=== PATIENT | female | born 1935 | race Caucasian/White ===

== ENCOUNTER 2017-03-11 16:25 | Inpatient (IN) | payer MEDICARE, OTHER ==
--- NOTE | 2017-03-11 16:59 | RAD ---
AP AND FROGLEG VIEWS RIGHT HIP 03/11/17 AP and frogleg views right hip is obtained. The images demonstrate an area of lucency seen in the right superior and inferior pubic rami compati ble with possible right superior and inferior pubic rami fractures. The right hip including the femo ral neck and head are unremarkable. IMPRESSION: Possible right superior and inferior pubic rami fractures indeterminate age. Correlate with AP view pelvis as well as history. POS: [facility]
[2017-03-11] MEDS ORDERED: Ketorolac Tromethamine 30 MG/ML VIAL ONE (17:51)
[2017-03-11 18:07] LABS: #Lymphocytes 0.6 thou/uL (1.20-3.40); #Monocytes 1.3 thou/uL (0.11-0.59); #Neutrophils 13.8 thou/uL (1.40-6.50); %Eosinophils 0.1 % (0.0-10.0); %Lymphocytes 3.9 % (21.0-51.0); Mean Platelet Volume 7.3 fL (7.4-10.4); Red Blood Cell (RBC) Count 3.47 mill/uL (4.20-5.40); White Blood Cell (WBC) Count 15.7 thou/uL (4.8-10.8)
[2017-03-11 18:16] LABS: PTT 26.7 SEC (22.9-36.1); Prothrombin Time 14.2 SEC (12.0-14.7)
[2017-03-11 18:19] LABS: Anion Gap 16 mmol/L (10-20); BUN (Urea Nitrogen) 15 mg/dL (9.8-20.1); Calc. Creatinine Clearance 0 mL/min (70-130); Calcium 9.3 mg/dL (7.8-10.44); Carbon Dioxide 25 mmol/L (23-31); Chloride 106 mmol/L (98-107); Estimated GFR-MDRD 73
[2017-03-11 18:26] LABS: Lactic Acid - Sepsis 4.1 mmol/L (0.5-2.2)
[2017-03-11 19:37] LABS: Bilirubin Negative (Negative); Blood, Urine Negative (Negative); Glucose, Urine (Dipstick) Negative (Negative); Ketone, Urine Negative (Negative); Nitrite Negative (Negative); Protein, Urine (Dipstick) Negative (Neg-Trace); Urobilinogen 0.2 mg/dL (0.2-1.0)
[2017-03-11] MEDS ORDERED: traMADol HCl 50 MG TAB PO PRN (19:45)
--- NOTE | 2017-03-11 19:45 | RAD ---
PORTABLE AP CHEST X-RAY: 03/11/17 HISTORY: Right hip pain. Preoperative evaluation. COMPARISON: 01/01/17. FINDINGS: Cardiac silhouette is magnified by projection. Pulmonary vasculature is within normal limits. The epg ngs are clear. Vascular calcification seen in the thoracic aorta. There has been no interval change from the prior study. IMPRESSION: No acute cardiopulmonary process. POS: [facility]
[2017-03-11] MEDS ORDERED: Dextrose 50% Abboject 50 ML SYRINGE SLOW IVP PRN (19:47)
[2017-03-11] MEDS ORDERED: Ondansetron HCl/PF 4 MG/2 ML Vial IVP PRN (19:47)
[2017-03-11] MEDS ORDERED: Dextrose 5% in Water 1,000 ML IV PRN (19:47)
[2017-03-11] MEDS ORDERED: Ondansetron ODT 4 MG TAB PO PRN (19:47)
[2017-03-11] MEDS ORDERED: cefTRIAXone\\ROCEPHIN 2 GM VIAL ONE (19:49)
[2017-03-11] MEDS ORDERED: Sodium Chloride 0.9% 100 ML ONE (19:49)
[2017-03-11 20:03] LABS: Troponin I 0.018 ng/mL (< 0.028)
[2017-03-11] MEDS ORDERED: Ibuprofen 600 MG TAB PO SCH (21:00)
[2017-03-11] MEDS: Acetaminophen 500 MG TAB PO SCH (22:31)
[2017-03-11] MEDS: Ibuprofen 600 MG TAB PO SCH (22:34)
[2017-03-11] MEDS: Famotidine 20 MG TAB PO SCH (22:34)
[2017-03-11] MEDS: Senokot S 8.6-50 MG TAB PO SCH (22:34)
[2017-03-12] MEDS: traMADol HCl 50 MG TAB PO SCH ×4 (00:22→19:46)
[2017-03-12 01:31] VITALS: BMI 21.3
[2017-03-12] MEDS: Acetaminophen 500 MG TAB PO SCH ×4 (01:55→20:09)
[2017-03-12] MEDS: Ibuprofen 600 MG TAB PO SCH ×3 (05:22→21:34)
[2017-03-12 05:52] LABS: #Monocytes 0.5 thou/uL (0.11-0.59); #Neutrophils 4.6 thou/uL (1.40-6.50); %Basophils 0.3 % (0.0-1.0); %Eosinophils 0.5 % (0.0-10.0); %Lymphocytes 16.9 % (21.0-51.0); %Monocytes 7.3 % (0.0-10.0); Hematocrit 24.2 % (36.0-47.0); Red Blood Cell (RBC) Count 2.47 mill/uL (4.20-5.40); White Blood Cell (WBC) Count 6.2 thou/uL (4.8-10.8)
[2017-03-12 06:03] LABS: Anion Gap 9 mmol/L (10-20); BUN (Urea Nitrogen) 13 mg/dL (9.8-20.1); Calc. Creatinine Clearance 51 mL/min (70-130); Calcium 8.2 mg/dL (7.8-10.44); Carbon Dioxide 29 mmol/L (23-31); Chloride 108 mmol/L (98-107); Estimated GFR-MDRD 84; Magnesium 1.6 mg/dL (1.6-2.6); Phosphorus 3.1 mg/dL (2.3-4.7)
--- NOTE | 2017-03-12 07:52 | CON ---
DATE OF CONSULTATION: 03/12/2017 CHIEF COMPLAINT: Right hip pain. HISTORY OF PRESENT ILLNESS: Ms. Ca is an 81-year-old female who lives independently and is in [facility]. She was watering her plants when she lost her balance. She landed on a concrete step. She had pain in the hip. Her neighbor helped her up. She was taken to the emergency department wit h hip pain. She was found to have a superior and inferior pubic ramus fracture on the right side. She has been admitted for pain control and mobilization. PAST MEDICAL HISTORY: Consistent with hyperlipidemia. PAST SURGICAL HISTORY: History of cataract surgery, and hysterectomy. PSYCHIATRIC: History of depression. SOCIAL HISTORY: The patient drinks alcohol. She denies tobacco or drug use. ALLERGIES: No known drug allergies. PHYSICAL EXAMINATION: VITAL SIGNS: Temperature is 97.9, pulse 91, respiratory 18, blood pressure 110/51. GENERAL: She is alert and oriented, no apparent distress, sitting upright. RESPIRATORY: Breathing comfortably. ABDOMEN: Soft, nontender, nondistended. MUSCULOSKELETAL: The right leg has no ecchymosis. She can move the hip and internal and external r otation without significant discomfort. Normal posture and alignment. NEUROLOGICAL: Neurovascular intact distally. IMAGES: X-ray of the right hip demonstrates an inferior and superior pubic ramus fracture on the ri ght side. There is no evidence of proximal femur fracture. IMPRESSION: Pubic ramus fracture in an elderly female. PLAN: At this point, the patient will continue to have pain control as needed. We will try to avoi d narcotics. She will mobilize with physical therapy. She can be weightbearing as tolerated. She can have a regular diet, no plans for surgical intervention. She may need placement if she cannot m obilize safely.
[2017-03-12] MEDS: Famotidine 20 MG TAB PO SCH ×2 (11:20→21:11)
[2017-03-12] MEDS: Senokot S 8.6-50 MG TAB PO SCH ×2 (11:24→21:11)
[2017-03-12] MEDS: Folic Acid 1 MG TAB PO SCH (11:35)
[2017-03-12] MEDS: Heparin 5,000 UNITS/ML VIAL SC SCH ×3 (11:51→21:11)
--- NOTE | 2017-03-12 12:09 | PRG-2 ---
DATE OF SERVICE: 03/12/2017 DATE OF ADMISSION: 03/11/2017 SUBJECTIVE: Brenda Ca is an 81-year-old female, who is here after coming to the ER, status post fall and having a fracture of her pubic rami. The patient reports doing very well today and has alr jamison gotten up with PT and walked to the door and is walked to the bathroom. Reports pain being ravi quately controlled. Denies any other symptoms at this time. Denies any other concerns or complaint s at this time. Patient at first did not want to go to rehab and is waiting to be assessed. OBJECTIVE: VITAL SIGNS: Temperature 98.6, pulse 76, respirations 12, O2 sats 93% on room air, blood pressure i s 112/64. LABORATORY DATA: White blood cell count 6.2, hemoglobin 8.1, hematocrit 24.2, platelet count is 129 . Chemistry: Sodium is 143, potassium is 3.3, chloride is 108, carbon dioxide is 29, BUN is 13, cr eatinine is 0.67, glucose is 98, calcium is 8.2, phosphorus is 3.1 and magnesium is 1.6. IMAGING: Reports no new imaging to be reviewed today. ASSESSMENT AND PLAN: 1. Status post mechanical fall. 2. Pubic rami fracture. 3. Acute traumatic pain. 4. History of depression. 5. History of hyperlipidemia. PLAN: We will continue the patient to work with PT and OT. She is currently being assessed for desi ab screening for rehab placement. At first, the patient did not request to go to rehabilitation. W e have discussed with her that rehabilitation would do her good and so she will continue to talk wit h rehab screening and we will await decision. We will continue to monitor vital signs. Pain has be en well controlled. We will continue her on current pain regimen and adjust as needed and ortho has been consulted and is not going to do operative treatment at this time. This patient was seen with Dr. Cesar Parker and the plan of care was discussed with Dr. Cesar sorensen.
--- NOTE | 2017-03-12 15:12 | HP-2 ---
ATTENDING PHYSICIAN: Dr. Parker. CHIEF COMPLAINT: The patient comes in for evaluation of fall. HISTORY OF PRESENT ILLNESS: This is an 81-year-old female who was outside and missed a step and fel l onto her right hip on the concrete. Reports any other trauma. Denies any other chest pain, abdom inal pain, arm pain or leg pain and just reports right hip pain. She said she immediately had hip p ain and bruising and had trouble ambulating. No other problems at this time. Did not lose consciou sness. No dizziness, no headaches. She did report to be a DNR. REVIEW OF SYSTEMS: All review of systems not noted in the HPI are otherwise negative at this time. PAST MEDICAL HISTORY: Significant for depression and hyperlipidemia. PAST SURGICAL HISTORY: Bilateral cataracts, mouth surgery and hysterectomy. DRUG ALLERGIES: No known drug allergies. CURRENT MEDICATIONS: She takes Effexor and simvastatin. She currently does not know the doses of t hese meds and does not have them with her. We will have family bring them in and reconcile meds kaycee orrow. SOCIAL HISTORY: The patient drinks 2-3 beers every day. Denies ever smoking and denies any illicit drug use. CODE STATUS: DNR. PHYSICAL EXAMINATION: VITAL SIGNS: Temperature was 97.6, pulse of 81, respirations 20, O2 sat was 99% on room air and blo od pressure was 167/72. GENERAL: She is alert and oriented x3. HEENT: Normocephalic and atraumatic. No acute trauma or abnormality noted. NECK: Supple. No thyromegaly, no bruits. CARDIOVASCULAR: Regular rate and rhythm. No murmurs or gallops. RESPIRATORY: Lungs are clear to auscultation bilaterally. Symmetric chest expansion, nonlabored br eathing. ABDOMEN: Soft and nontender to palpation. Bowel sounds heard in all 4 quadrants. No masses or dis tention. EXTREMITIES: Able to move upper extremities well. No bruising or cuts noted. She is tender to pal pation on the right hip area. There is bruising noted. No other leg abnormality noted. Nontender to palpation in the lower leg extremities. Able to wiggle toes. NEUROVASCULAR: No neuro focal deficit noted. Neurovascularly intact pedal pulses and radial pulses palpated bilaterally. PSYCHIATRIC: Affect is normal and the patient is appropriate and answers questions appropriately. LABORATORY DATA: White blood cell count is 15.7, hemoglobin 10.8, hematocrit 34.0 and platelet coun t of 187. PT was 14.2, INR was 1.1 and aPTT was 26.7. Chemistry: Sodium was 142, potassium 3.6, c hloride 106, carbon dioxide 25, anion gap 16, BUN 15, creatinine 0.76, GFR 73, glucose 107, lactic a mikki was 4.1 but repeat few hours later was 2.1, calcium was 9.3, CK-MB was 25.1, troponin was 0.018 and C-reactive protein was less than 0.5. Urine culture was negative, normal color, nothing seen an d blood cultures were taken down in the ER. IMAGING DATA: Hip x-ray showed possible right superior and inferior pubic rami fractures indetermin ate age, correlate with AP view of the pelvis as well as history and chest x-ray showed no acute car diopulmonary process. ASSESSMENT: 1. Status post mechanical fall. 2. Acute traumatic pain. 3. Pelvic rami fractures. 4. History of depression. 5. History of hyperlipidemia. PLAN: Plan is to consult with Ortho, has spoken with Ortho. Plan is for nonoperative treatment. A t this time, the patient will be admitted for PT, OT. We will get rehab screening. The patient is a good candidate for rehab at this time. She does not want to go rehab, but we will talk with her t omorrow. Otherwise, vital signs are stable. Lab; we will recheck labs in the morning. Labs are do ing okay and we will continue to put her on a scheduled pain regimen, trauma pain protocol. We will continue to assess pain and readjust as needed. The patient was seen with trauma Huma SLATER. Santa ent will be seen by attending when patient moves up to the room. Dr. Cesar Parker will need to cos ign this progress note. As you feel, you need to make it look good.
[2017-03-13] MEDS: traMADol HCl 50 MG TAB PO SCH ×2 (00:08→06:24)
[2017-03-13] MEDS: Acetaminophen 500 MG TAB PO SCH ×2 (03:40→08:38)
[2017-03-13] MEDS: Ibuprofen 600 MG TAB PO SCH (06:20)
[2017-03-13 07:38] VITALS: BP 125/67; TEMP 98.4
[2017-03-13] MEDS: Folic Acid 1 MG TAB PO SCH (08:42)
[2017-03-13] MEDS: Famotidine 20 MG TAB PO SCH (08:42)
[2017-03-13] MEDS: Heparin 5,000 UNITS/ML VIAL SC SCH (08:42)
[2017-03-13] MEDS: Senokot S 8.6-50 MG TAB PO SCH (08:43)
[2017-03-13] MEDS ORDERED: Venlafaxine HCl XR 75 MG CAP PO SCH (09:00)
[2017-03-13] MEDS ORDERED: Atorvastatin Calcium 20 MG TAB PO SCH (21:00)
--- NOTE | 2017-03-15 12:49 | DIS ---
DATE OF ADMISSION: 03/11/2017 DATE OF DISCHARGE: 03/13/2017 ADMISSION DIAGNOSES: 1. Status post ground level fall. 2. Acute traumatic pain. 3. Pelvic pubic rami fractures. 4. Multiple comorbidities. CONSULTATIONS: Hermann Garcia M.D. PROCEDURES: None. SUMMARY: The patient is an 81-year-old woman who fell at home landing on her right hip. The patien t was brought to the emergency department, evaluated, examined, and found to have the above injuries . The patient will be evaluated by Dr. Garcia who recommended nonoperative treatment, weight lionel ring as tolerated. The patient will be then evaluated by rehab which she was accepted. At the time of discharge, the patient had been working with physical and occupational therapy. She was ambulat ing with the use of a walker. She was tolerating a diet and her pain was controlled. She will foll ow up with Dr. Garcia in 2-3 weeks sooner as needed. This patient may also follow up with the [facility] as needed.
== END 2017-03-13 10:50 | DRG 536 ==
LOC: ERS 16:25 → SURG A 20:00
PROVIDERS: ADMIT Surgery; ATTEND Surgery
DX: S32.9XXA Fracture of unspecified parts of lumbosacral spine and pelvis, initial encounter for closed fracture (principal); W19.XXXA Unspecified fall, initial encounter
CPT/HCPCS: 36415; 51702; 71010; 80048; 81003; 82553; 83605; 83735; 84100; 84484; 85025; 85610; 85730; 86140; 87040; 87086; 93005; 96365; 96375; G8978-GP-CL; G8979-GP-CI; G8987-GO-CK; G8988-GO-CI; J0696; J1644; J1885; J7050

== ENCOUNTER 2017-04-26 11:10 | Emergency (ER) | payer MEDICARE, OTHER ==
--- NOTE | 2017-04-26 12:41 | RAD ---
AP PELVIS 1 VIEW: HISTORY: Hip pain. COMPARISON: 03/11/17. FINDINGS: Sacral alae are intact. The patient is rotated leftward. Ununited fracture involving the left super ior pubic ramus, with malalignment, is similar in appearance to the previous exam. There are osteoar thritic changes of each hip. Phleboliths project over the pelvis. IMPRESSION: Chronic-type findings are stable. No acute osseous abnormalities are demonstrated. POS: [facility]
[2017-04-26 12:49] LABS: Bilirubin Negative (Negative); Blood, Urine Small (Negative); Glucose, Urine (Dipstick) Negative (Negative); Ketone, Urine Negative (Negative); Nitrite Positive (Negative); Protein, Urine (Dipstick) Negative (Neg-Trace); Urobilinogen 0.2 mg/dL (0.2-1.0)
[2017-04-26 12:55] LABS: Bacteria/HPF 2+ HPF (None Seen); Hyaline Casts/LPF 4-6 HYALINE CAST LPF (0-3 Hyaline); Squamous Epithelial 0-3 HPF (0-3)
== END 2017-04-26 14:30 | disposition home or self-care (01) ==
LOC: ERS 11:10
DX: N39.0 Urinary tract infection, site not specified (principal); S32.591D Other specified fracture of right pubis, subsequent encounter for fracture with routine healing; E78.5 Hyperlipidemia, unspecified; F32.9 Major depressive disorder, single episode, unspecified; Z79.899 Other long term (current) drug therapy
CPT/HCPCS: 51701; 72170; 81003; 81015; 87077; 87086; 87186; A4353

== ENCOUNTER 2017-05-09 15:45 | Inpatient (IN) | payer MEDICARE, OTHER ==
[2017-05-09 16:24] LABS: #Basophils 0.1 thou/uL (0.0-0.2); #Eosinphils 0.1 thou/uL (0.0-0.7); #Lymphocytes 1.5 thou/uL (1.20-3.40); #Monocytes 0.6 thou/uL (0.11-0.59); #Neutrophils 4.8 thou/uL (1.40-6.50); %Basophils 0.8 % (0.0-1.0); %Eosinophils 1.1 % (0.0-10.0); %Lymphocytes 20.9 % (21.0-51.0); %Monocytes 8.7 % (0.0-10.0); Hematocrit 39.4 % (36.0-47.0); Mean Platelet Volume 7.2 fL (7.4-10.4); Red Blood Cell (RBC) Count 4.12 mill/uL (4.20-5.40)
--- NOTE | 2017-05-09 16:29 | RAD ---
PORTABLE UPRIGHT FRONTAL CHEST: Date: 05/09/17 COMPARISON: 03/11/17. HISTORY: Generalized weakness, urinary tract infection 2 weeks ago. FINDINGS: There is mild pulmonary hyperinflation and increased linear interstitial density. There is atheroscle rotic calcification of the aortic arch. There is no pneumothorax, pleural fluid, focal consolidation, or alveolar edema. IMPRESSION: No acute findings. POS: [facility]
[2017-05-09 16:39] LABS: Lactic Acid - Sepsis 1.5 mmol/L (0.5-2.2)
[2017-05-09 16:45] LABS: ALT (SGPT) 27 U/L (8-55); AST (SGOT) 42 U/L (5-34); Alkaline Phosphatase 121 U/L (40-150); Anion Gap 14 mmol/L (10-20); BUN (Urea Nitrogen) 24 mg/dL (9.8-20.1); Bilirubin, Total 0.3 mg/dL (0.2-1.2); Calc. Creatinine Clearance 0 mL/min (70-130); Calcium 10.7 mg/dL (7.8-10.44); Carbon Dioxide 28 mmol/L (23-31); Chloride 106 mmol/L (98-107); Estimated GFR-MDRD 52; Globulin 3.1 g/dL (2.4-3.5); Protein, Total 7.1 g/dL (6.0-8.3)
[2017-05-09 16:47] LABS: Troponin I 0.029 ng/mL (< 0.028)
[2017-05-09 17:12] LABS: Bilirubin Negative (Negative); Blood, Urine Negative (Negative); Glucose, Urine (Dipstick) Negative (Negative); Ketone, Urine Negative (Negative); Nitrite Negative (Negative); Protein, Urine (Dipstick) Negative (Neg-Trace); Urobilinogen 0.2 mg/dL (0.2-1.0)
[2017-05-09 17:14] LABS: Bacteria/HPF None Seen HPF (None Seen); Squamous Epithelial 0-3 HPF (0-3); WBC/HPF 21-50 HPF (0-3)
[2017-05-09 17:49] LABS: Hyaline Casts/LPF 0-3 HYALINE CAST LPF (0-3 Hyaline)
[2017-05-09] MEDS ORDERED: Aspirin 81 mg Enteric Coated Tablet ONE (18:24)
[2017-05-09 20:37] LABS: Troponin I 0.029 ng/mL (< 0.028)
[2017-05-09] MEDS ORDERED: Ondansetron HCl/PF 4 MG/2 ML Vial IVP PRN (21:04)
[2017-05-09] MEDS ORDERED: Ondansetron ODT 4 MG TAB SL PRN (21:04)
[2017-05-09] MEDS ORDERED: Acetaminophen 325 MG TAB PO PRN ×2 (21:04→21:05)
[2017-05-09] MEDS ORDERED: Sodium Chloride 0.9% 1,000 ML IV SCH (21:04)
[2017-05-09 21:33] VITALS: BMI 18.6
[2017-05-09] MEDS ORDERED: Nitroglycerin 0.4 MG TAB (25 Tab Bottle) PO PRN (22:18)
[2017-05-09] MEDS ORDERED: Senokot 8.6 MG TAB PO PRN (22:18)
[2017-05-09] MEDS ORDERED: Diabetic Tussin 200 MG/10 ML UDCUP PO PRN (22:21)
[2017-05-09] MEDS ORDERED: hydrALAZINE 20 MG/ML VIAL SLOW IVP PRN (22:22)
[2017-05-09] MEDS ORDERED: Loratadine 10 MG TAB PO PRN (22:22)
[2017-05-09] MEDS ORDERED: Eucerin (Mineral Oil/Petrolatum,White) 30 gm Jar TOP PRN (22:22)
[2017-05-09] MEDS ORDERED: Ibuprofen 200 MG TAB PO SCH (22:30)
[2017-05-09] MEDS ORDERED: Lorazepam 0.5 MG TAB PO SCH (22:30)
[2017-05-09] MEDS ORDERED: Cefepime 1 GM in Sodium Chloride 0.9% 100 ML IVPB SCH (22:30)
[2017-05-09] MEDS: Cefepime 1 GM, Admixture Fee 1 EACH in Sterile Water 10 ML SLOW IVP SCH (22:42)
[2017-05-09] MEDS: Sodium Chloride 0.65% Nasal 44 ML BOT EA NARE PRN (22:44)
[2017-05-09 22:54] LABS: Troponin I 0.029 ng/mL (< 0.028)
[2017-05-09] MEDS: Sodium Chloride 0.9% 1,000 ML IV SCH (22:54)
--- NOTE | 2017-05-09 23:05 | HP ---
DATE OF ADMISSION: 05/09/2017 PRIMARY CARE PHYSICIAN: Rafael Hudson MD CHIEF COMPLAINT: Generalized weakness with some intermittent confusion. CODE STATUS: FULL CODE. SURROGATE DECISION-[employer]KER. Family. Daughter, Carl are involved in her medical care. HISTORY OF PRESENT ILLNESS: Patient is an 81-year-old female who was discharged from this facility on 03/13/2017 by trauma team to inpatient rehabilitation, presented to the emergency room with above complaints. The patient had a fall at a ground level with pelvic fractures that was managed conservatively. Later on, she was discharged home from the rehab. Post- discharge from the rehabilitation, patient is not doing well. She is unable to ambulate much. She was diagnosed with urinary tract infection at the rehabilitation, for which she completed cephalexin. Repeat urine sample was sent 3 days ago that was positive for Pseudomonas. She was started on Levaquin 500 mg daily for 5, 2 days ago. She has been incontinent most of the time and her urine is dark. She is unable to sleep and is anxious all the time. She refuses Ensure. Overall, due to gradual decline, she was brought into the emergency room. In the emergency room, her initial vital signs showed temperature 98.1, respirations 16, pulse rate of 140 with blood pressure of 171/57 with O2 saturation 100% on room air. Later on, her heart rate improved. EKG showed sinus rhythm with PACs with nonspecific ST-T wave changes. WBC count was 7 without significant left shift. Urinalysis showed 21-50 wbc's with moderate leukocyte esterase. Blood cultures and urine cultures were sent from the emergency room. She received Rocephin 2 grams along with aspirin and 1 liter IV fluids. PAST MEDICAL HISTORY: 1. Recent pelvic fracture, managed conservatively. 2. Anxiety and depression. 3. Dyslipidemia. 4. Rheumatoid arthritis. 5. Vitamin D deficiency. PAST SURGICAL HISTORY: 1. Bilateral cataract surgery. 2. Hysterectomy. 3. Oral surgery, details unavailable. ALLERGIES: No known drug allergies. CURRENT HOME MEDICATIONS: Patient does not remember any of her home medications. Family is to bring an accurate list of medications in a.m. SOCIAL HISTORY: She drinks on and off most of the time on a daily basis up to 1 -2 drinks. She is a retired banker. No tobacco or drug use. FAMILY HISTORY: Negative for premature coronary artery disease. REVIEW OF SYSTEMS: The following complete review of systems was negative, unless otherwise mentioned in the HPI or below: Constitutional: Weight loss or gain, ability to conduct usual activities. Skin: Rash, itching. Eyes: Double vision, pain. ENT/Mouth: Nose bleeding, neck stiffness, pain, tenderness. Cardiovascular: Palpitations, dyspnea on exertion, orthopnea. Respiratory: Shortness of breath, wheezing, cough, hemoptysis, fever or night sweats. Gastrointestinal: Poor appetite, abdominal pain, heartburn, nausea, vomiting, constipation, or diarrhea. Genitourinary: Urgency, frequency, dysuria, nocturia. Musculoskeletal: Pain, swelling. Neurologic/Psychiatric: Anxiety, depression. Allergy/Immunologic: Skin rash, bleeding tendency. Weight loss or gain, ability to conduct, orthopnea. Respiratory: Shortness of , bleeding tendency. PHYSICAL EXAMINATION: VITAL SIGNS: As discussed above. GENERAL: An 81-year-old female, thin built with a BMI 18.7, 95 pounds, in no apparent distress. Still with intermittent confusion. HEENT: Atraumatic, normocephalic. Dry mucous membrane. No oral lesion. NECK: Supple. No JVD, no neck stiffness. LUNGS: Clear to auscultation bilaterally. No wheezing or rales. HEART: S1, S2 present. No heaves or pulsation. 2/6 systolic murmur over the mitral area. ABDOMEN: Soft. Bowel sounds present. EXTREMITIES: No edema. There was questionable calf tenderness in the left lower extremities. PERIPHERAL VASCULAR: Radial pulses palpable bilaterally. MUSCULOSKELETAL: No joint swelling or tenderness. SKIN: Warm and dry. LYMPH NODES: No palpable lymph nodes in the neck. PERIPHERAL VASCULAR: Radial pulses palpable bilaterally. MUSCULOSKELETAL: No joint swelling or tenderness. LABORATORY FINDINGS: As discussed above. BUN was 24, creatinine 1.02, calcium was 10.7. Troponin of 0.029. TSH was 6.9. IMAGING: Chest x-ray and EKG by my review as discussed above. There was no infiltrate on the chest x-ray. IMPRESSION: 1. Generalized weakness, multifactorial. 2. Recently diagnosed urinary tract infection. She is currently on Levaquin at home. She probably failed outpatient therapy. Repeat urine cultures have been sent. 3. Abnormal troponins, probably secondary to dehydration. 4. Left leg tenderness with recent pelvic fractures and lack of mobility, rule out deep venous thrombosis. 5. Hypoglycemia, probably secondary to poor oral intake. 6. Hypercalcemia secondary to dehydration. 7. Moderate protein-calorie malnutrition. 8. Anxiety and depression. 9. Chronic alcohol use. 10. Chronically elevated CK-MB. Troponins, however, have been normal in the past. 11. Anxiety and depression without any suicidal ideation. 12. Rheumatoid arthritis. Currently on nonsteroidal anti-inflammatory drugs. PLAN: The patient will be monitored on the telemetry unit. We will start her on IV antibiotics for Pseudomonas urinary tract infection. Repeat urine cultures and blood cultures have been sent. IV fluids. We will add multivitamin, thiamine, and folic acid due to daily alcohol use. Consult dietitian. Please note that patient is refusing Ensure. We will consult physical therapy, occupation therapy. We will get Doppler of bilateral lower extremity to rule out DVT due to immobilization. Echocardiogram will be obtained. Please note that CK-MB have been chronically elevated. We will check folic acid, vitamin B12, and cortisol level. Plan of care was discussed with the patient and the daughter, Dinah at the bedside. They stated understanding. Code status: FULL CODE. The patient will require 2-3 days for stabilization. MTDD
[2017-05-10 05:22] LABS: #Eosinphils 0.1 thou/uL (0.0-0.7); #Lymphocytes 1.7 thou/uL (1.20-3.40); #Monocytes 0.5 thou/uL (0.11-0.59); #Neutrophils 3.7 thou/uL (1.40-6.50); %Basophils 0.8 % (0.0-1.0); %Eosinophils 2.3 % (0.0-10.0); %Lymphocytes 28.2 % (21.0-51.0); %Monocytes 7.9 % (0.0-10.0); Hematocrit 37.6 % (36.0-47.0); Mean Platelet Volume 7.5 fL (7.4-10.4); Red Blood Cell (RBC) Count 3.93 mill/uL (4.20-5.40)
[2017-05-10 05:56] LABS: Anion Gap 11 mmol/L (10-20); BUN (Urea Nitrogen) 16 mg/dL (9.8-20.1); BUN/Creatinine Ratio 21.33; Calc. Creatinine Clearance 40 mL/min (70-130); Calcium 8.9 mg/dL (7.8-10.44); Carbon Dioxide 27 mmol/L (23-31); Chloride 107 mmol/L (98-107); Estimated GFR-MDRD 74; Phosphorus 2.8 mg/dL (2.3-4.7)
[2017-05-10] MEDS ORDERED: Potassium Chloride 20 MEQ TAB PO SCH (08:30)
--- NOTE | 2017-05-10 08:40 | ULT ---
BILATERAL LOWER EXTREMITY DOPPLER VENOUS ULTRASOUND: Date: 05/10/17 INDICATION: Lower extremity tenderness and immobilization. Concern for deep venous thrombosis. There is also bila teral lower extremity calf redness and edema. TECHNIQUE: Whitehead scale, color Doppler, and vascular duplex with spectral analysis was performed of the deep venou s structures of the bilateral lower extremities. The common femoral vein, superficial femoral vein, proximal greater saphenous vein, proximal greater profunda vein, popliteal, and posterior tibial vein s were assessed. FINDINGS: Normal compression, flow, and augmentation was seen within the deep venous structures on both lower e xtremities. IMPRESSION: No evidence of deep venous thrombosis within either lower extremity. POS: [facility]
[2017-05-10] MEDS: Saccharomyces boulardii 250 MG CAP PO SCH (08:55)
[2017-05-10] MEDS: Aspirin 81 mg Enteric Coated Tablet PO SCH (08:56)
[2017-05-10] MEDS: Famotidine 20 MG TAB PO SCH (08:56)
[2017-05-10] MEDS: Cyanocobalamin (Vitamin B-12) 1,000 MCG TAB PO SCH (08:56)
[2017-05-10] MEDS: Folic Acid 1 MG TAB PO SCH (08:56)
[2017-05-10] MEDS: Multivit, Therapeutic 1 TAB PO SCH (08:56)
[2017-05-10] MEDS: Heparin 5,000 UNITS/ML VIAL SC SCH ×2 (08:57→22:18)
[2017-05-10] MEDS: Sodium Chloride 0.65% Nasal 44 ML BOT EA NARE PRN (09:00)
[2017-05-10] MEDS ORDERED: Aspirin 325 MG TAB PO SCH (09:00)
[2017-05-10] MEDS: Ibuprofen 200 MG TAB PO SCH ×3 (09:01→22:18)
[2017-05-10] MEDS: Docusate 100 MG CAP PO SCH ×2 (09:23→22:18)
[2017-05-10] MEDS: Polyethylene Glycol 3350 17 GM Packet PO SCH (09:23)
[2017-05-10] MEDS: Sodium Chloride 0.9% 1,000 ML IV SCH ×2 (11:09→15:09)
[2017-05-10] MEDS: Cefepime 1 GM, Admixture Fee 1 EACH in Sterile Water 10 ML SLOW IVP SCH ×2 (11:09→23:20)
[2017-05-10] MEDS ORDERED: Chloraseptic Spray 180 ml Bottle PO PRN (12:30)
--- NOTE | 2017-05-10 12:41 | PDOC.PN ---
- Subjective Encounter Start Date: 05/10/17 Encounter Start Time: 07:30 -: old records requested/rev pt is doing ok, she is weak, code status addressed and she wanted to be DNR, so changed to DNR per request, no fever - Objective Resuscitation Status: Resuscitation Status DNR:Do Not Resuscitate MAR Reviewed: Yes Vital Signs & Weight: Vital Signs (12 hours) Temp Pulse Resp BP Pulse Ox 05/10/17 11:23 99.7 F H 97 18 139/65 99 05/10/17 09:07 93 L Result Diagrams: 05/10/17 04:48 05/10/17 04:48 EKG Reviewed by me: Yes (NSR) Phys Exam - Physical Examination Constitutional: NAD HEENT: PERRLA, moist MMs, sclera anicteric Neck: no JVD, supple Respiratory: no wheezing, no rales, no rhonchi Cardiovascular: RRR, no significant murmur, no rub Gastrointestinal: soft, non-tender, no distention, positive bowel sounds Musculoskeletal: no edema, pulses present Neurological: non-focal, normal sensation Lymphatic: no nodes Psychiatric: normal affect, A&O x 3 Skin: no rash, normal turgor Dx/Plan (1) Elevated troponin Code(s): R74.8 - ABNORMAL LEVELS OF OTHER SERUM ENZYMES Status: Acute Comment: demand ischemia (2) Failure of outpatient treatment Code(s): Z78.9 - OTHER SPECIFIED HEALTH STATUS Status: Acute (3) Hypercalcemia Code(s): E83.52 - HYPERCALCEMIA Status: Acute Comment: due to dehydration (4) Hypoglycemia Code(s): E16.2 - HYPOGLYCEMIA, UNSPECIFIED Status: Acute Comment: due to poor po intake (5) Hypokalemia Code(s): E87.6 - HYPOKALEMIA Status: Acute (6) Left leg pain Code(s): M79.605 - PAIN IN LEFT LEG Status: Acute (7) Subclinical hypothyroidism Code(s): E03.9 - HYPOTHYROIDISM, UNSPECIFIED Status: Acute (8) UTI (urinary tract infection) Status: Acute (9) Weakness generalized Code(s): R53.1 - WEAKNESS Status: Acute (10) Anxiety and depression Code(s): F41.8 - OTHER SPECIFIED ANXIETY DISORDERS Status: Chronic (11) Dyslipidemia Code(s): E78.5 - HYPERLIPIDEMIA, UNSPECIFIED Status: Chronic (12) Protein-calorie malnutrition, moderate Code(s): E44.0 - MODERATE PROTEIN-CALORIE MALNUTRITION Status: Chronic (13) Arthritis, rheumatoid Code(s): M06.9 - RHEUMATOID ARTHRITIS, UNSPECIFIED Status: Chronic - Plan cont current plan of care, continue antibiotics, PT/OT, 7th grade social studies teacher * replace potassium * start synthroid 25 mcg po daily * continue cefepime * code status-DNR * continue IVF * continue nutritional support * will need placement * medication reviewed as below * symptomatic treatment. Review of Systems - Review of Systems ENT: negative: Ear Pain, Ear Discharge, Nose Pain, Nose Discharge, Nose Congestion, Mouth Pain, Mouth Swelling, Throat Pain, Throat Swelling, Other Respiratory: negative: Cough, Dry, Shortness of Breath, Hemoptysis, SOB with Excertion, Pleuritic Pain, Sputum, Wheezing Cardiovascular: negative: Chest Pain, Palpitations, Orthopnea, Paroxysmal Noc. Dyspnea, Edema, Light Headedness, Other Gastrointestinal: negative: Nausea, Vomiting, Abdominal Pain, Diarrhea, Constipation, Melena, Hematochezia, Other Genitourinary: negative: Dysuria, Frequency, Incontinence, Hematuria, Retention , Other Musculoskeletal: negative: Neck Pain, Shoulder Pain, Arm Pain, Back Pain, Hand Pain, Leg Pain, Foot Pain, Other Skin: negative: Rash, Lesions, Tom, Bruising, Other - Medications/Allergies Allergies/Adverse Reactions: Allergies Allergy/AdvReac Type Severity Reaction Status Date / Time acetaminophen [From Tylenol] Allergy Nausea Verified 05/09/17 21:13 Medications: Current Medications Albuterol/Ipratropium (Duoneb) 3 ml NEB Q4H PRN PRN Reason: SOB &/or Wheezing Aspirin (Ecotrin) 81 mg PO DAILY [facility] Last Admin: 05/10/17 08:56 Dose: 81 mg Cyanocobalamin (Vitamin B-12) 1,000 mcg PO DAILY [facility] Last Admin: 05/10/17 08:56 Dose: 1,000 mcg Docusate Sodium (Colace) 100 mg PO BID [facility] Last Admin: 05/10/17 09:23 Dose: Not Given Ergocalciferol (Drisdol) 1.25 mg PO Q7DAYS [facility] Famotidine (Pepcid) 20 mg PO DAILY [facility] Last Admin: 05/10/17 08:56 Dose: 20 mg Folic Acid (Folvite) 1 mg PO DAILY [facility] Last Admin: 05/10/17 08:56 Dose: 1 mg Guaifenesin (Robitussin Sf) 200 mg PO Q4H PRN PRN Reason: Cough Heparin Sodium (Porcine) (Heparin) 5,000 units SC BID [facility] Last Admin: 05/10/17 08:57 Dose: 5,000 units Hydralazine HCl (Apresoline) 5 mg SLOW IVP Q4H PRN PRN Reason: SBP Greater Than 180 Sodium Chloride (Normal Saline 0.9%) 1,000 mls @ 75 mls/hr IV .[id number] [facility] Last Admin: 05/10/17 11:09 Dose: 1,000 mls Cefepime HCl 1 gm/Miscellaneous Medication 1 each/ Sterile Water 10 mls @ 120 mls/hr SLOW IVP 1030,2230 [facility] Last Admin: 05/10/17 11:09 Dose: 10 mls Ibuprofen (Motrin) 200 mg PO TID [facility] Last Admin: 05/10/17 09:01 Dose: 200 mg Levothyroxine Sodium (Synthroid) 25 mcg PO 0600 [facility] Loratadine (Claritin) 10 mg PO DAILYPRN PRN PRN Reason: Sinus Symptoms Mineral Oil/White Petrolatum (Eucerin Cream) 0 gm TOP BIDPRN PRN PRN Reason: Dry Skin Multivitamins (Theragran) 1 tab PO DAILY [facility] Last Admin: 05/10/17 08:56 Dose: 1 tab Nitroglycerin (Nitrostat) 0.4 mg PO Q5MIN PRN PRN Reason: Chest Pain Phenol (Chloraseptic [place] 180 Ml Bot) 2 ml PO BIDPRN PRN PRN Reason: Sore Throat Polyethylene Glycol (Miralax) 17 gm PO DAILY [facility] Last Admin: 05/10/17 09:23 Dose: Not Given Saccharomyces Boulardii (Florastor) 250 mg PO DAILY [facility] Last Admin: 05/10/17 08:55 Dose: 250 mg Senna (Senokot) 2 tab PO HSPRN PRN PRN Reason: Constipation Sodium Chloride ([place] Nasal [place] 0.65%) 0 ml EA NARE TID PRN PRN Reason: Nasal Congestion Last Admin: 05/10/17 09:00 Dose: 2 spr Thiamine HCl (Thiamine) 100 mg PO DAILY [facility] Last Admin: 05/10/17 08:56 Dose: 100 mg
[2017-05-11 05:36] LABS: #Eosinphils 0.2 thou/uL (0.0-0.7); #Monocytes 0.6 thou/uL (0.11-0.59); #Neutrophils 3.3 thou/uL (1.40-6.50); %Basophils 0.6 % (0.0-1.0); %Eosinophils 2.8 % (0.0-10.0); %Lymphocytes 32.3 % (21.0-51.0); %Monocytes 10.5 % (0.0-10.0); Hematocrit 36.2 % (36.0-47.0); Mean Platelet Volume 7.6 fL (7.4-10.4); Red Blood Cell (RBC) Count 3.75 mill/uL (4.20-5.40); White Blood Cell (WBC) Count 6.1 thou/uL (4.8-10.8)
[2017-05-11 06:12] LABS: Anion Gap 10 mmol/L (10-20); BUN (Urea Nitrogen) 12 mg/dL (9.8-20.1); BUN/Creatinine Ratio 16.67; Calc. Creatinine Clearance 41 mL/min (70-130); Calcium 8.9 mg/dL (7.8-10.44); Carbon Dioxide 26 mmol/L (23-31); Chloride 109 mmol/L (98-107); Estimated GFR-MDRD 78; Phosphorus 2.9 mg/dL (2.3-4.7)
[2017-05-11] MEDS: Levothyroxine Sodium 25 MCG TAB PO SCH (06:54)
[2017-05-11] MEDS: Cyanocobalamin (Vitamin B-12) 1,000 MCG TAB PO SCH (07:32)
[2017-05-11] MEDS: Polyethylene Glycol 3350 17 GM Packet PO SCH ×2 (07:32→07:33)
[2017-05-11] MEDS: Docusate 100 MG CAP PO SCH ×2 (07:32→20:14)
[2017-05-11] MEDS: Saccharomyces boulardii 250 MG CAP PO SCH (07:32)
[2017-05-11] MEDS: Famotidine 20 MG TAB PO SCH (07:32)
[2017-05-11] MEDS: Ibuprofen 200 MG TAB PO SCH ×3 (07:33→20:14)
[2017-05-11] MEDS: Folic Acid 1 MG TAB PO SCH (07:33)
[2017-05-11] MEDS: Aspirin 81 mg Enteric Coated Tablet PO SCH (07:33)
[2017-05-11] MEDS: Multivit, Therapeutic 1 TAB PO SCH (07:33)
[2017-05-11] MEDS: Heparin 5,000 UNITS/ML VIAL SC SCH ×2 (07:48→20:14)
[2017-05-11] MEDS: Cefepime 1 GM, Admixture Fee 1 EACH in Sterile Water 10 ML SLOW IVP SCH ×2 (09:34→20:15)
--- NOTE | 2017-05-11 10:54 | PDOC.PN ---
- Subjective Encounter Start Date: 05/11/17 Encounter Start Time: 08:50 Patient seen and examined. No new complaints. No overnight events - Objective Resuscitation Status: Resuscitation Status DNR:Do Not Resuscitate MAR Reviewed: Yes Vital Signs & Weight: Vital Signs (12 hours) Temp Pulse Resp BP Pulse Ox 05/11/17 08:35 97.9 F 80 16 05/11/17 07:36 97.9 F 80 16 179/95 H 97 05/11/17 04:00 97.8 F 71 20 159/84 H 98 05/11/17 00:00 98.3 F 94 20 173/78 H 96 Weight Admit Weight 95 lb 8 oz Weight 95 lb 8 oz Result Diagrams: 05/11/17 04:11 05/11/17 04:11 Phys Exam - Physical Examination Constitutional: NAD HEENT: PERRLA, moist MMs, sclera anicteric Neck: no JVD, supple Respiratory: no wheezing, no rales, no rhonchi Cardiovascular: RRR, no significant murmur, no rub Gastrointestinal: soft, non-tender, no distention, positive bowel sounds Musculoskeletal: no edema, pulses present Neurological: non-focal Psychiatric: normal affect Skin: no rash, normal turgor Dx/Plan (1) Elevated troponin Code(s): R74.8 - ABNORMAL LEVELS OF OTHER SERUM ENZYMES Status: Acute Comment: demand ischemia (2) Failure of outpatient treatment Code(s): Z78.9 - OTHER SPECIFIED HEALTH STATUS Status: Acute (3) Hypercalcemia Code(s): E83.52 - HYPERCALCEMIA Status: Acute Comment: due to dehydration (4) Hypoglycemia Code(s): E16.2 - HYPOGLYCEMIA, UNSPECIFIED Status: Acute Comment: due to poor po intake (5) Hypokalemia Code(s): E87.6 - HYPOKALEMIA Status: Acute (6) Left leg pain Code(s): M79.605 - PAIN IN LEFT LEG Status: Acute (7) Subclinical hypothyroidism Code(s): E03.9 - HYPOTHYROIDISM, UNSPECIFIED Status: Acute (8) UTI (urinary tract infection) Status: Acute (9) Weakness generalized Code(s): R53.1 - WEAKNESS Status: Acute (10) Anxiety and depression Code(s): F41.8 - OTHER SPECIFIED ANXIETY DISORDERS Status: Chronic (11) Dyslipidemia Code(s): E78.5 - HYPERLIPIDEMIA, UNSPECIFIED Status: Chronic (12) Protein-calorie malnutrition, moderate Code(s): E44.0 - MODERATE PROTEIN-CALORIE MALNUTRITION Status: Chronic (13) Arthritis, rheumatoid Code(s): M06.9 - RHEUMATOID ARTHRITIS, UNSPECIFIED Status: Chronic - Plan cont current plan of care, plan discussed w/ family, continue antibiotics, PT/OT , social media senior associate * continue PT/OT * continue cefepime * on discharge cipro * so far culture negative * plan updated to daughter on phone * [facility] if pt and family agree, if not then home with home health * outpt urology follow up advised * medication reviewed as below * symptomatic treatment. Review of Systems - Review of Systems ENT: negative: Ear Pain, Ear Discharge, Nose Pain, Nose Discharge, Nose Congestion, Mouth Pain, Mouth Swelling, Throat Pain, Throat Swelling, Other Respiratory: negative: Cough, Dry, Shortness of Breath, Hemoptysis, SOB with Excertion, Pleuritic Pain, Sputum, Wheezing Cardiovascular: negative: Chest Pain, Palpitations, Orthopnea, Paroxysmal Noc. Dyspnea, Edema, Light Headedness, Other Gastrointestinal: negative: Nausea, Vomiting, Abdominal Pain, Diarrhea, Constipation, Melena, Hematochezia, Other Genitourinary: negative: Dysuria, Frequency, Incontinence, Hematuria, Retention , Other Musculoskeletal: negative: Neck Pain, Shoulder Pain, Arm Pain, Back Pain, Hand Pain, Leg Pain, Foot Pain, Other - Medications/Allergies Allergies/Adverse Reactions: Allergies Allergy/AdvReac Type Severity Reaction Status Date / Time acetaminophen [From Tylenol] Allergy Nausea Verified 05/09/17 21:13 Medications: Current Medications Albuterol/Ipratropium (Duoneb) 3 ml NEB Q4H PRN PRN Reason: SOB &/or Wheezing Aspirin (Ecotrin) 81 mg PO DAILY [facility] Last Admin: 05/11/17 07:33 Dose: 81 mg Cyanocobalamin (Vitamin B-12) 1,000 mcg PO DAILY [facility] Last Admin: 05/11/17 07:32 Dose: 1,000 mcg Docusate Sodium (Colace) 100 mg PO BID [facility] Last Admin: 05/11/17 07:32 Dose: 100 mg Ergocalciferol (Drisdol) 1.25 mg PO Q7DAYS [facility] Famotidine (Pepcid) 20 mg PO DAILY [facility] Last Admin: 05/11/17 07:32 Dose: 20 mg Folic Acid (Folvite) 1 mg PO DAILY [facility] Last Admin: 05/11/17 07:33 Dose: 1 mg Guaifenesin (Robitussin Sf) 200 mg PO Q4H PRN PRN Reason: Cough Heparin Sodium (Porcine) (Heparin) 5,000 units SC BID [facility] Last Admin: 05/11/17 07:48 Dose: Not Given Hydralazine HCl (Apresoline) 5 mg SLOW IVP Q4H PRN PRN Reason: SBP Greater Than 180 Cefepime HCl 1 gm/Miscellaneous Medication 1 each/ Sterile Water 10 mls @ 120 mls/hr SLOW IVP 1030,2230 [facility] Last Admin: 05/11/17 09:34 Dose: 10 mls Ibuprofen (Motrin) 200 mg PO TID [facility] Last Admin: 05/11/17 07:33 Dose: 200 mg Levothyroxine Sodium (Synthroid) 25 mcg PO 0600 [facility] Last Admin: 05/11/17 06:54 Dose: 25 mcg Loratadine (Claritin) 10 mg PO DAILYPRN PRN PRN Reason: Sinus Symptoms Mineral Oil/White Petrolatum (Eucerin Cream) 0 gm TOP BIDPRN PRN PRN Reason: Dry Skin Multivitamins (Theragran) 1 tab PO DAILY [facility] Last Admin: 05/11/17 07:33 Dose: 1 tab Nitroglycerin (Nitrostat) 0.4 mg PO Q5MIN PRN PRN Reason: Chest Pain Phenol (Chloraseptic [place] 180 Ml Bot) 0 ml PO BIDPRN PRN PRN Reason: Sore Throat Last Admin: 05/10/17 22:23 Dose: 2 spr Polyethylene Glycol (Miralax) 17 gm PO DAILY [facility] Last Admin: 05/11/17 07:33 Dose: 17 gm Saccharomyces Boulardii (Florastor) 250 mg PO DAILY [facility] Last Admin: 05/11/17 07:32 Dose: 250 mg Senna (Senokot) 2 tab PO HSPRN PRN PRN Reason: Constipation Sodium Chloride (Wray Nasal [place] 0.65%) 0 ml EA NARE TID PRN PRN Reason: Nasal Congestion Last Admin: 05/10/17 09:00 Dose: 2 spr Thiamine HCl (Thiamine) 100 mg PO DAILY [facility] Last Admin: 12/12/17 07:32 Dose: 100 mg
[2017-05-12 04:37] LABS: #Basophils 0.1 thou/uL (0.0-0.2); #Eosinphils 0.2 thou/uL (0.0-0.7); #Monocytes 0.8 thou/uL (0.11-0.59); #Neutrophils 4.1 thou/uL (1.40-6.50); %Basophils 1.1 % (0.0-1.0); %Lymphocytes 27.7 % (21.0-51.0); %Monocytes 11.4 % (0.0-10.0); Hematocrit 38.1 % (36.0-47.0); Mean Platelet Volume 7.3 fL (7.4-10.4); Red Blood Cell (RBC) Count 3.99 mill/uL (4.20-5.40); White Blood Cell (WBC) Count 7.2 thou/uL (4.8-10.8)
[2017-05-12 04:56] LABS: Anion Gap 11 mmol/L (10-20); BUN (Urea Nitrogen) 13 mg/dL (9.8-20.1); BUN/Creatinine Ratio 17.81; Calc. Creatinine Clearance 41 mL/min (70-130); Calcium 9.4 mg/dL (7.8-10.44); Carbon Dioxide 28 mmol/L (23-31); Chloride 106 mmol/L (98-107); Estimated GFR-MDRD 76; Phosphorus 3.2 mg/dL (2.3-4.7)
[2017-05-12] MEDS: Levothyroxine Sodium 25 MCG TAB PO SCH (04:58)
[2017-05-12] MEDS ORDERED: Potassium Chloride 20 MEQ TAB PO SCH (08:15)
[2017-05-12 08:22] VITALS: BP 168/76; TEMP 98.8
[2017-05-12] MEDS: Multivit, Therapeutic 1 TAB PO SCH (08:39)
[2017-05-12] MEDS: Cyanocobalamin (Vitamin B-12) 1,000 MCG TAB PO SCH (08:40)
[2017-05-12] MEDS: Docusate 100 MG CAP PO SCH (08:40)
[2017-05-12] MEDS: Folic Acid 1 MG TAB PO SCH (08:40)
[2017-05-12] MEDS: Saccharomyces boulardii 250 MG CAP PO SCH (08:40)
[2017-05-12] MEDS: Aspirin 81 mg Enteric Coated Tablet PO SCH (08:40)
[2017-05-12] MEDS: Famotidine 20 MG TAB PO SCH (08:40)
[2017-05-12] MEDS: Ibuprofen 200 MG TAB PO SCH (08:42)
[2017-05-12] MEDS: Heparin 5,000 UNITS/ML VIAL SC SCH (09:00)
[2017-05-12] MEDS: Cefepime 1 GM, Admixture Fee 1 EACH in Sterile Water 10 ML SLOW IVP SCH (10:40)
--- NOTE | 2017-05-12 12:55 | DIS ---
DATE OF ADMISSION: 05/10/2017 DATE OF DISCHARGE: 05/12/2017 PRIMARY CARE PHYSICIAN: Rafael Hudson M.D. DISCHARGE DISPOSITION: Home. PRIMARY DISCHARGE DIAGNOSES: 1. Generalized weakness. 2. Elevated troponin due to demand ischemia. 3. Hypercalcemia due to dehydration. 4. Hypoglycemia due to poor p.o. intake. 5. Hypokalemia due to poor p.o. intake. 6. Left leg pain, ruled out deep venous thrombosis. 7. Subclinical hypothyroidism. 8. Viral/streptococcal pharyngitis. 9. Urinary tract infection. SECONDARY DISCHARGE DIAGNOSES: 1. Anxiety and depression. 2. Rheumatoid arthritis. 3. Dyslipidemia. 4. Protein calorie malnutrition, moderate. PRIMARY PROCEDURE/OPERATION: None. RADIOLOGICAL INVESTIGATION: Chest x-ray was normal. Echocardiography showed normal EF. SIGNIFICANT LABORATORIES: WBC 7.2, hemoglobin 12.3, platelets 170, sodium 142, potassium 3.3, BUN 13, creatinine 0.73, calcium 9.4, albumin 3.4. Cardiac enzymes negative. B12 and folate normal. Thyroid function tests normal. TSH normal. Cortisol 9.0. Urinalysis suggestive of UTI, but urine culture negative. Influenza negative. Blood culture negative. DISCHARGE MEDICATIONS: Augmentin 500 mg p.o. b.i.d. for 7 days, vitamin D3 10, 000 units p.o. daily, vitamin B12 2500 mcg p.o. daily, folic acid 1 mg p.o. daily, Zofran 4 mg p.o. q.6 hourly p.r.n., Florastor 250 mg p.o. daily for 7 days, Senokot-S 2 tablets twice daily, Zocor 40 mg p.o. daily, thiamine 100 mg p.o. daily, tramadol 50 mg q.6 hourly p.r.n., Effexor XR 75 mg p.o. daily. CONTRAINDICATIONS: None. CODE STATUS: DNR. INPATIENT CONSULTANTS: None. ALLERGIES: ACETAMINOPHEN. DISCHARGE PLAN: Post hospital, the patient is discharged home with home health. Subsequently, the patient will follow up with primary care physician. HOSPITAL COURSE: An 81-year-old female who was recently diagnosed with urinary tract infection and she was given levofloxacin, but she was not feeling improvement with levofloxacin and that is why she was brought to the emergency room in hospital. She was appropriately given Levaquin based on culture and sensitivity result, but she did not have any improvement, and that is why we admitted her in our hospital. She was also having sore throat and we suspected a streptococcal/viral pharyngitis and during this admission, we changed to Augmentin therapy. While in hospital, she was given cefepime and on discharge we changed to Augmentin therapy based on culture and sensitivity result from previous. Initially, we were thinking that this patient should go to [facility] , but the patient and family member did not wanted that option and they wanted to go home with home health. While in hospital, she did okay with physical therapy. Her strength is back to normal. She has malnourishment and that is why nutritional supplement was advised. The patient is seen and examined at bedside today. Review of systems reviewed with her and negative. Plan of care discussed with the family member. PHYSICAL EXAMINATION: VITAL SIGNS: Currently, temperature 98.8, pulse 92, respiratory rate 16, blood pressure 160/69, weight 95 pounds. GENERAL: The patient is currently alert, oriented, no acute distress. HEAD: Normocephalic, atraumatic. LUNGS: Clear. CARDIAC: S1 and S2 regular without any murmur. ABDOMEN: Soft and benign without any tenderness. EXTREMITIES: No edema. NEUROLOGIC: Nonfocal examination. All new medication prescription given to her. Total time spent on discharge day more than 30 minutes MTDD
[2017-05-16] MEDS ORDERED: Ergocalciferol 1.25 MG(50,000 UNITS) CAP PO SCH (09:00)
== END 2017-05-12 11:47 | disposition home health service (06) | DRG 690 ==
LOC: ERS 15:45 → 2NO 19:07 → OBSVTOIN 05-10 08:50 → T4-A 05-10 19:17
PROVIDERS: ADMIT Internal Medicine; ATTEND Internal Medicine
DX: N39.0 Urinary tract infection, site not specified (principal); E44.0 Moderate protein-calorie malnutrition; I24.8 Other forms of acute ischemic heart disease; E86.0 Dehydration; E83.52 Hypercalcemia; Z68.1 Body mass index [BMI] 19.9 or less, adult; B96.5 Pseudomonas (aeruginosa) (mallei) (pseudomallei) as the cause of diseases classified elsewhere; E16.2 Hypoglycemia, unspecified; E87.6 Hypokalemia; M06.9 Rheumatoid arthritis, unspecified; F41.9 Anxiety disorder, unspecified; F32.9 Major depressive disorder, single episode, unspecified; E02 Subclinical iodine-deficiency hypothyroidism; E78.5 Hyperlipidemia, unspecified; Z66 Do not resuscitate; M79.605 Pain in left leg; J02.0 Streptococcal pharyngitis; B34.9 Viral infection, unspecified; E55.9 Vitamin D deficiency, unspecified
CPT/HCPCS: 36415; 51701; 71010; 80053; 80069; 81003; 81015; 82533; 82553; 82607; 82746; 83605; 83735; 84439; 84443; 84484; 85025; 87040; 87086; 93005; 93306; 93970; 94760; 96361; 96374; A4216; G8978-GP-CI; G8979-GP-CI; G8980-GP-CI; G8987-GO-CI; G8988-GO-CI; G8989-GO-CI; J0692; J0696; J1644

== ENCOUNTER 2018-10-04 11:01 | Emergency (ER) | payer MEDICARE, OTHER ==
[2018-10-04 13:21] LABS: #Eosinphils 0.6 thou/uL (0.0-0.7); #Lymphocytes 1.5 thou/uL (1.20-3.40); #Monocytes 0.7 thou/uL (0.11-0.59); #Neutrophils 6.4 thou/uL (1.40-6.50); %Basophils 0.3 % (0.0-1.0); %Eosinophils 6.3 % (0.0-10.0); %Lymphocytes 16.6 % (21.0-51.0); %Monocytes 7.1 % (0.0-10.0); %Neutrophils 69.7 % (42.0-75.0); Hemoglobin 11.5 g/dL (12.0-16.0); Mean Corpuscular HGB CONC 32.2 g/dL (32.0-36.0); Mean Corpuscular Hemoglobin 30.8 pg (27.0-31.0); Mean Corpuscular Volume 95.6 fL (78.0-98.0); Mean Platelet Volume 6.6 fL (7.4-10.4); Platelet Count 274 thou/uL (130-400); RBC Distribution Width 11.8 % (11.5-14.5); Red Blood Cell (RBC) Count 3.74 mill/uL (4.20-5.40); White Blood Cell (WBC) Count 9.2 thou/uL (4.8-10.8)
[2018-10-04 13:46] LABS: ALT (SGPT) 15 U/L (8-55); AST (SGOT) 27 U/L (5-34); Alkaline Phosphatase 72 U/L (40-150); Anion Gap 13 mmol/L (10-20); BUN (Urea Nitrogen) 16 mg/dL (9.8-20.1); Bilirubin, Total 0.4 mg/dL (0.2-1.2); Calc. Creatinine Clearance 0 mL/min (70-130); Calcium 9.7 mg/dL (7.8-10.44); Carbon Dioxide 27 mmol/L (23-31); Chloride 106 mmol/L (98-107); Estimated GFR-MDRD 71; Globulin 2.9 g/dL (2.4-3.5); Glucose 96 mg/dL (83-110); Potassium 3.7 mmol/L (3.5-5.1); Protein, Total 6.9 g/dL (6.0-8.3); Sodium 142 mmol/L (136-145)
[2018-10-04 13:48] LABS: Bilirubin Negative (Negative); Blood, Urine Negative (Negative); Clarity CLEAR (Clear); Glucose, Urine (Dipstick) Negative (Negative); Leukocyte Moderate (Negative); Nitrite Negative (Negative); Protein, Urine (Dipstick) Negative (Neg-Trace); Urobilinogen 0.2 mg/dL (0.2-1.0)
[2018-10-04 13:52] LABS: Bacteria/HPF None Seen HPF (None Seen); Hyaline Casts/LPF 0-3 HYALINE CAST LPF (0-3 Hyaline); RBC/HPF 0-3 HPF (0-3); Squamous Epithelial 0-3 HPF (0-3)
== END 2018-10-04 15:15 | disposition home or self-care (01) ==
LOC: ERS 11:01
DX: H04.123 Dry eye syndrome of bilateral lacrimal glands (principal); N39.0 Urinary tract infection, site not specified
CPT/HCPCS: 36415; 80053; 81003; 81015; 85025; 87086; 99283

== ENCOUNTER 2018-11-09 12:55 | Outpatient (CLI) | payer MEDICARE, OTHER ==
--- NOTE | 2018-11-10 07:26 | ULT ---
BILATERAL RENAL ULTRASOUND WITH MAI SCALE AND DOPPLER COLOR FLOW IMAGIN11/09/18 CLINICAL HISTORY: Urinary urgency/incontinence. FINDINGS: There is no evidence of overt hydronephrosis or suspicious renal lesion bilaterally. There is limite d distention of the urinary bladder which demonstrates prominent wall thickening. IMPRESSION: 1. No acute renal pathology. 2. Prominent wall thickening of the urinary bladder. This could be on the basis of cystitis, or alternatively sequela from outlet obstruction or neurogenic bladder. Correlate clinically in this reg felicita. POS: LILIAM
== END 2018-11-09 12:56 | disposition home or self-care (01) ==
LOC: BICULT 12:55
PROVIDERS: ATTEND Urology
DX: N39.41 Urge incontinence (principal); R82.71 Bacteriuria; N32.89 Other specified disorders of bladder
CPT/HCPCS: 76770

== ENCOUNTER 2019-05-30 17:31 | Observation (INO) | payer MEDICARE, OTHER ==
--- NOTE | 2019-05-30 18:12 | RAD ---
RADIOGRAPH CHEST 1 VIEW: DATE: HISTORY: 83-year-old female with respiratory tract infection FINDINGS: There are no airspace densities, pulmonary edema, pneumothorax, or cardiomegaly. The lateral costophr enic angles are sharp. IMPRESSION: No acute cardiopulmonary findings.
[2019-05-30 18:21] LABS: #Basophils 0.1 thou/uL (0.0-0.2); #Eosinphils 0.1 thou/uL (0.0-0.7); #Lymphocytes 1.8 thou/uL (1.20-3.40); #Monocytes 0.5 thou/uL (0.11-0.59); #Neutrophils 5.6 thou/uL (1.40-6.50); %Basophils 0.7 % (0.0-1.0); %Eosinophils 1.3 % (0.0-10.0); %Lymphocytes 22.2 % (21.0-51.0); %Neutrophils 69.8 % (42.0-75.0); Hemoglobin 12.5 g/dL (12.0-16.0); Mean Corpuscular HGB CONC 35.3 g/dL (32.0-36.0); Mean Corpuscular Hemoglobin 32.3 pg (27.0-31.0); Mean Corpuscular Volume 91.4 fL (78.0-98.0); Mean Platelet Volume 6.3 fL (7.4-10.4); Platelet Count 289 thou/uL (130-400); Red Blood Cell (RBC) Count 3.88 mill/uL (4.20-5.40)
[2019-05-30 18:42] LABS: ALT (SGPT) 26 U/L (8-55); AST (SGOT) 35 U/L (5-34); Albumin 4.2 g/dL (3.4-4.8); Alkaline Phosphatase 80 U/L (40-110); Anion Gap 15 mmol/L (10-20); BUN (Urea Nitrogen) 34 mg/dL (9.8-20.1); Bilirubin, Total 0.4 mg/dL (0.2-1.2); CK (CPK) 491 U/L (29-168); Calc. Creatinine Clearance 0 mL/min (70-130); Calcium 9.6 mg/dL (7.8-10.44); Carbon Dioxide 30 mmol/L (23-31); Chloride 99 mmol/L (98-107); Estimated GFR-MDRD 29; Glucose 154 mg/dL (83-110); Potassium 4.1 mmol/L (3.5-5.1); Protein, Total 7.2 g/dL (6.0-8.3); Sodium 140 mmol/L (136-145)
[2019-05-30 19:54] LABS: Bilirubin Negative (Negative); Blood, Urine Negative (Negative); Clarity Clear (Clear); Glucose, Urine (Dipstick) Normal (Negative); Leukocyte 75 Leu/uL (Negative); Nitrite Negative (Negative); Protein, Urine (Dipstick) Negative (Neg-Trace); RBC/HPF 0-3 HPF (0-3); Squamous Epithelial 0-3 HPF (0-3); Urobilinogen Normal mg/dL (Less than 2)
[2019-05-30 20:03] LABS: Bacteria/HPF 1+ HPF (None Seen)
[2019-05-30] MEDS ORDERED: cefTRIAXone\\ROCEPHIN 1 GM VIAL ONE (20:21)
[2019-05-30] MEDS ORDERED: Sodium Chloride 0.9% 1,000 ML IV SCH (21:49)
[2019-05-30 22:03] LABS: Troponin I 0.039 ng/mL (< 0.028)
[2019-05-30] MEDS ORDERED: Melatonin 3 MG TAB PO PRN (22:19)
[2019-05-30] MEDS: Sodium Chloride 0.9% 1,000 ML IV SCH (22:34)
[2019-05-30] MEDS ORDERED: Ondansetron PF 4 MG/2 ML Vial IVP PRN (22:48)
[2019-05-30] MEDS ORDERED: Senokot S 8.6-50 MG TAB PO PRN (22:48)
[2019-05-30] MEDS ORDERED: Ondansetron ODT 4 MG TAB PO PRN (22:48)
[2019-05-30] MEDS ORDERED: Calcium Carbonate 500 MG ChewTAB PO PRN (22:48)
--- NOTE | 2019-05-30 23:13 | HP ---
PRIMARY CARE PHYSICIAN: Dr. Hudson. CHIEF COMPLAINT: Near syncopal episode. HISTORY OF PRESENT ILLNESS: The patient is an 83-year-old white female with chronic urinary incontinence, presented to the emergency room with above complaints. There are no family at the bedside. The patient is somewhat poor historian. The patient had a near syncopal episode earlier today while she was eating. She denies any loss of consciousness. The daughter gradually laid her down. The patient denies any chest pain, shortness of breath, nausea, vomiting, or focal neurologic deficit. She is recovering from upper respiratory tract infection. She had some right hand cramping that has improved after IV fluids. In the emergency room, her vital signs showed temperature 98.4, respirations of 14, pulse rate of 61 with a blood pressure of 132/72, with O2 saturation of 100% on room air. Workup was consistent with acute kidney injury as well as UTI. She received IV fluids as well as Rocephin. EKG showed sinus rhythm with left ventricular hypertrophy. The patient's daughter was present earlier. She mentions that the patient lost consciousness for 2 to 3 minutes. The patient had some foaming around the mouth as well during the syncopal episode. The orthostatic vitals were not done since the patient was significantly weak and was unable to stand. PAST MEDICAL HISTORY: 1. Chronic urinary incontinence. 2. Anxiety. 3. Peptic ulcer disease. 4. Hyperlipidemia. 5. Allergic rhinitis. 6. Depression. 7. Vitamin D deficiency. 8. Gait imbalance. PAST SURGICAL HISTORY: 1. Hysterectomy. 2. Breast biopsy. 3. Tonsillectomy. 4. Cataract surgery. 5. EGD. 6. Colonoscopy. 7. History of pelvic fracture that was managed conservatively. ALLERGIES: THE PATIENT IS ALLERGIC TO ANTIHISTAMINES AND TYLENOL. CURRENT HOME MEDICATIONS: The patient is unable to recall any of her home medications. Per review of Dr. Hudson's office record, the patient is on, 1. Remeron 15 mg at bedtime. 2. Zoloft 25 mg daily. 3. Effexor 75 mg daily. FAMILY HISTORY: Negative for heart disease. The patient has 2 daughters. SOCIAL HISTORY: The patient is full code. She states that her next of kin is at [facility], phone #[phone]. REVIEW OF SYSTEMS: Limited due to current mentation. PHYSICAL EXAMINATION: VITAL SIGNS: As discussed above. GENERAL: An 83-year-old female, in no apparent distress HEENT: Head, atraumatic and normocephalic. Sclerae anicteric. Dry mucous membranes. No oral lesion. NECK: Supple. No JVD appreciated. No carotid bruit. LUNGS: Clear to auscultation bilaterally. No wheezing or rhonchi. HEART: S1, S2 present. Regular. ABDOMEN: Soft, nontender. Bowel sounds present. EXTREMITIES: No edema or calf tenderness. NEUROLOGIC: Grossly nonfocal. Power was 5/5 in all extremities. PSYCHIATRIC: Alert, awake, and oriented x3. Flat affect. The patient denies any suicidal ideation. SKIN: Warm and dry. LYMPH NODES: No palpable lymph nodes in the neck. PERIPHERAL VASCULAR: Radial pulses palpable bilaterally, low volume. LABORATORY FINDINGS: WBC 8.0 with hemoglobin 12.5, platelet 289. Chemistry showed sodium 140, potassium 4.1, chloride 99, bicarb 30, BUN 34, creatinine 1.7, glucose of 154. Troponin of 0.039. BNP was 350. CK was 491. Urinalysis showed 11 to 20 wbc's with 1+ bacteria and hyaline cast. EKG by my review as discussed above. Chest x-ray by my review was negative for infiltrate or edema. IMPRESSION: 1. Syncopal episode secondary to dehydration/acute kidney injury. 2. Acute kidney injury on chronic kidney disease stage 2. 3. Elevated troponin/type 2 myocardial infarction due to dehydration. 4. Urinary tract infection. 5. Generalized weakness, multifactorial. 6. Anxiety. 7. Depression, mild stable, the patient denies any suicidal ideation. PLAN: The patient will be monitored on the telemetry unit. We will continue IV Rocephin along with IV hydration. Echocardiogram will be obtained. We will repeat troponin in a.m. We will verify home medications and resume once confirmed. Bladder scan will be obtained. We will check orthostatic vitals in a.m. We will add low-dose aspirin. Physical Therapy consultation. Plan was discussed with the patient in detail. We will discuss the plan with the family in a.m. We will verify the code status with the family in a.m. Full code for now. Job ID: [id number]
[2019-05-31 04:31] LABS: Anion Gap 17 mmol/L (10-20); BUN (Urea Nitrogen) 28 mg/dL (9.8-20.1); Calc. Creatinine Clearance 0 mL/min (70-130); Calcium 8.8 mg/dL (7.8-10.44); Carbon Dioxide 21 mmol/L (23-31); Chloride 104 mmol/L (98-107); Estimated GFR-MDRD 47; Glucose 93 mg/dL (83-110); Phosphorus 3.5 mg/dL (2.3-4.7); Potassium 3.9 mmol/L (3.5-5.1); Sodium 138 mmol/L (136-145)
[2019-05-31 04:59] LABS: Magnesium 1.7 mg/dL (1.6-2.6)
[2019-05-31 05:04] LABS: Troponin I Less than 0.010 ng/mL (< 0.028)
[2019-05-31] MEDS ORDERED: Cepastat Lozenges 1 LOZ PO PRN (07:37)
[2019-05-31] MEDS ORDERED: hydrALAZINE 20 MG/ML VIAL SLOW IVP PRN (07:37)
[2019-05-31] MEDS ORDERED: Loratadine 10 MG TAB PO PRN (07:37)
[2019-05-31] MEDS ORDERED: Diabetic Tussin 200 MG/10 ML UDCUP PO PRN (07:37)
[2019-05-31] MEDS ORDERED: Loperamide HCl 2 MG CAP PO PRN (07:37)
[2019-05-31] MEDS ORDERED: Sodium Chloride 0.65% Nasal 44 ML BOT EA NARE PRN (07:37)
[2019-05-31] MEDS ORDERED: Melatonin 3 MG TAB PO PRN (08:00)
[2019-05-31] MEDS ORDERED: Senokot S 8.6-50 MG TAB PO PRN (08:00)
[2019-05-31] MEDS ORDERED: Aspirin Chewable 81 MG TAB ONE (09:12)
[2019-05-31] MEDS ORDERED: cefTRIAXone\\ROCEPHIN 1 GM VIAL ONE (09:12)
[2019-05-31] MEDS ORDERED: Folic Acid 1 MG TAB ONE (09:12)
[2019-05-31] MEDS: Sodium Chloride 0.9% 1,000 ML IV SCH (09:18)
[2019-05-31] MEDS: cefTRIAXone\\ROCEPHIN 1 GM in Sodium Chloride 0.9% 100 ML IVPB SCH (09:18)
[2019-05-31] MEDS: Multivit, Therapeutic 1 TAB PO SCH (09:19)
[2019-05-31] MEDS: Aspirin 81 mg Enteric Coated Tablet PO SCH (09:19)
[2019-05-31] MEDS: Folic Acid 1 MG TAB PO SCH (09:19)
--- NOTE | 2019-05-31 12:41 | PDOC.HOSPP ---
- Subjective Encounter Date: 05/31/19 Encounter Time: 11:15 Subjective: Patient seen and examined. No new complaints. No overnight events - Objective Result Diagrams: 05/30/19 18:13 05/31/19 04:18 Radiology Reviewed by me: Yes EKG Reviewed by me: Yes Hospitalist ROS - Review of Systems Eyes: denies: pain, vision change, conjunctivae inflammation, eyelid inflammation, redness, other ENT: denies: ear pain, ear discharge, nose pain, nose discharge, nose congestion , mouth pain, mouth swelling, throat pain, throat swelling, other Respiratory: denies: cough, dry, shortness of breath, hemoptysis, SOB with excertion, pleuritic pain, sputum, wheezing, other Cardiovascular: denies: chest pain, palpitations, orthopnea, paroxysmal noc. dyspnea, edema, light headedness, other Gastrointestinal: denies: nausea, vomiting, abdominal pain, diarrhea, constipation, melena, hematochezia, other Genitourinary: denies: dysuria, frequency, incontinence, hematuria, retention, other Musculoskeletal: denies: neck pain, shoulder pain, arm pain, back pain, hand pain, leg pain, foot pain, other - Medication Medications: Active Medications Generic Name Dose Route Start Last Admin Trade Name Freq PRN Reason Stop Dose Admin Aspirin 81 mg 05/31/19 09:00 05/31/19 09:19 Ecotrin PO 81 mg DAILY DOMINI[facility] Administration Folic Acid 1 mg 05/31/19 09:00 05/31/19 09:19 Folvite PO 1 mg DAILY [facility] Administration Sodium Chloride 1,000 mls @ 100 mls/hr 05/30/19 22:30 05/31/19 09:18 Normal Saline 0.9% IV 05/31/19 18:29 1,000 mls .Q10H DOMINIQUE Administration Ceftriaxone Sodium 1 gm/ 100 mls @ 200 mls/hr 05/31/19 09:00 05/31/19 09:18 Sodium Chloride IVPB 100 mls DAILY [facility] Administration Multivitamins 1 tab 05/31/19 09:00 05/31/19 09:19 Theragran PO 1 tab DAILY [facility] Administration Sodium Chloride 10 ml 05/30/19 22:47 05/31/19 02:57 Flush - Normal Saline IVF 10 ml PRN PRN Administration Saline Flush - Exam General Appearance: NAD, awake alert Eye: PERRL, anicteric sclera ENT: normocephalic atraumatic, no oropharyngeal lesions Neck: supple, symmetric, no JVD, no thyromegaly Heart: RRR, no murmur, no gallops, no rubs Respiratory: CTAB, no wheezes, no rales, no ronchi Gastrointestinal: soft, non-tender, non-distended Extremities: no cyanosis, no clubbing, no edema Skin: normal turgor, no lesions Neurological: no focal deficits Musculoskeletal: normal tone, normal strength Psychiatric: normal affect, normal behavior Hosp A/P (1) UTI (urinary tract infection) Status: Acute (2) Dehydration Code(s): E86.0 - DEHYDRATION Status: Acute (3) Syncope Code(s): R55 - SYNCOPE AND COLLAPSE Status: Acute (4) Acute kidney failure Status: Acute (5) Weakness generalized Code(s): R53.1 - WEAKNESS Status: Acute (6) Anxiety and depression Code(s): F41.8 - OTHER SPECIFIED ANXIETY DISORDERS Status: Chronic (7) Arthritis, rheumatoid Code(s): M06.9 - RHEUMATOID ARTHRITIS, UNSPECIFIED Status: Chronic (8) Dyslipidemia Code(s): E78.5 - HYPERLIPIDEMIA, UNSPECIFIED Status: Chronic - Plan old records reviewed/req, continue antibiotics 05/31/19 continue IVF continue rocephin follow culture and repeat labs tomorrow medication reviewed and continue to provide symptomatic treatment
[2019-05-31] MEDS ORDERED: Enoxaparin Sodium 30 MG/0.3 ML SYRINGE SC SCH (21:00)
[2019-06-01 04:55] LABS: #Eosinphils 0.2 thou/uL (0.0-0.7); #Monocytes 0.8 thou/uL (0.11-0.59); #Neutrophils 4.9 thou/uL (1.40-6.50); %Basophils 0.5 % (0.0-1.0); %Eosinophils 2.4 % (0.0-10.0); %Lymphocytes 25.8 % (21.0-51.0); %Monocytes 9.5 % (0.0-10.0); %Neutrophils 61.9 % (42.0-75.0); Hemoglobin 10.9 g/dL (12.0-16.0); Mean Corpuscular HGB CONC 33.4 g/dL (32.0-36.0); Mean Corpuscular Hemoglobin 30.4 pg (27.0-31.0); Mean Corpuscular Volume 91.2 fL (78.0-98.0); Mean Platelet Volume 6.6 fL (7.4-10.4); Platelet Count 249 thou/uL (130-400); RBC Distribution Width 11.9 % (11.5-14.5); Red Blood Cell (RBC) Count 3.59 mill/uL (4.20-5.40); White Blood Cell (WBC) Count 7.9 thou/uL (4.8-10.8)
[2019-06-01 05:06] VITALS: BMI 18.9
[2019-06-01 05:18] LABS: Anion Gap 12 mmol/L (10-20); BUN (Urea Nitrogen) 21 mg/dL (9.8-20.1); Calc. Creatinine Clearance 36 mL/min (70-130); Calcium 8.2 mg/dL (7.8-10.44); Carbon Dioxide 23 mmol/L (23-31); Chloride 109 mmol/L (98-107); Estimated GFR-MDRD 65; Glucose 91 mg/dL (83-110); Potassium 3.5 mmol/L (3.5-5.1); Sodium 140 mmol/L (136-145)
[2019-06-01] MEDS ORDERED: Amlodipine 5 MG TAB PO SCH (09:00)
[2019-06-01] MEDS: Folic Acid 1 MG TAB PO SCH (09:09)
[2019-06-01] MEDS: cefTRIAXone\\ROCEPHIN 1 GM in Sodium Chloride 0.9% 100 ML IVPB SCH (09:09)
[2019-06-01] MEDS: Multivit, Therapeutic 1 TAB PO SCH (09:10)
[2019-06-01] MEDS: Aspirin 81 mg Enteric Coated Tablet PO SCH (09:10)
[2019-06-01 11:56] VITALS: TEMP 98
--- NOTE | 2019-06-01 12:03 | DIS ---
DATE OF ADMISSION: 05/30/2019 DATE OF DISCHARGE: 06/01/2019 PRIMARY CARE PHYSICIAN: Dr. Rafael Hudson. DISCHARGE DISPOSITION: Home. PRIMARY DISCHARGE DIAGNOSES: 1. Acute kidney injury, resolved. 2. Dehydration, corrected. 3. Syncope due to dehydration. 4. Generalized weakness due to dehydration. 5. Urinary tract infection. SECONDARY DISCHARGE DIAGNOSIS: 1. Rheumatoid arthritis. 2. Anxiety and depression. 3. Dyslipidemia. 4. Hypertension. PRIMARY PROCEDURE/OPERATION: None. RADIOLOGICAL INVESTIGATION: Echocardiography showed EF 60% to 65%, diastolic dysfunction. Chest x-ray reported as no acute cardiopulmonary process. SIGNIFICANT LABORATORY DATA: WBC 7.9, hemoglobin 10.9, and platelets are 249. Sodium 140, potassium 3.5, BUN 21, creatinine 0.83, and calcium 8.2. Cardiac enzyme only one showed indeterminate most of the normal BNP 350. Urinalysis suggestive of UTI. Urine culture negative. DISCHARGE MEDICATIONS: 1. Zoloft 25 mg p.o. daily. 2. Zocor 40 mg p.o. daily. 3. [place] nasal spray b.i.d. 4. Cipro 250 mg b.i.d. for 5 days. 5. Aspirin 81 mg daily. 6. Ferrous sulfate 325 mg p.o. daily. 7. Folic acid 1 mg daily. 8. Multivitamin one tablet p.o. daily. CONTRAINDICATION: None. CODE STATUS: Full code. INPATIENT LITERACY CONSULTANT: None. ALLERGIES: ACETAMINOPHEN. DISCHARGE PLAN: Posthospital, the patient will follow up with primary care physician in one week. HOSPITAL COURSE: An 83-year-old female with above-mentioned medical problem, who was admitted by Dr. Jama Chaves. Please see his H and P for further details. The patient was admitted for dizziness and near syncopal episode. The patient was found dehydrated. The patient was found with urinary tract infection. She had also acute kidney injury. The patient was hemodynamically stable. She was admitted to telemetry floor. We did echocardiography, which showed diastolic dysfunction. Her telemetry remained unremarkable. The patient was hydrated with IV fluid and her renal function improved to normal. Her urine culture is negative and that is why we empirically changed to ciprofloxacin for 5 more days. The patient is completely asymptomatic and up to her baseline level. The patient expressed her wish to go home today. The patient was seen and examined at bedside today. PHYSICAL EXAMINATION: VITAL SIGNS: Currently, temperature 97.4, pulse rate 77, and blood pressure 150/72, sitting 177/84 and standing 173/75. Weight 100 pounds. GENERAL: The patient is currently alert, awake, in no obvious acute distress. HEENT: Head, normocephalic and atraumatic. Eyes; pupils are round and reactive to light. Extraocular muscle intact. ENT; oropharynx within normal limits. Moist mucous membranes. No oral lesion. No pharyngeal erythema. No exudate. NECK: Supple. No JVD. No meningeal signs of irritation. LUNGS: Clear to auscultation without any rhonchi or rales. CARDIAC: S1 and S2. Regular without any murmur. No gallop. No rub. ABDOMEN: Soft. Bowel sounds present. Nontender. Nondistended. No organomegaly. No mass. EXTREMITIES: No edema. NEUROLOGIC: Nonfocal examination. Telemetry remained unremarkable. The patient expressed her wish to go home today. Job ID: [id number]
--- NOTE | 2019-06-01 12:34 | PDOC.EVN ---
Event Note - Event Note Event Note: Case reviewed as a member of the UR Committee. Discussed with the attending physician. Based on the clinical scenario, this case is most consistent with Observation and a Code 44 conversion from IP to Observation will be applied.
--- NOTE | 2019-06-01 12:54 | PDOC.HOSPP ---
- Subjective Encounter Date: 06/01/19 Encounter Time: 12:53 Subjective: Patient seen and examined. No new complaints. No overnight events - Objective Vital Signs & Weight: Vital Signs (12 hours) Temp Pulse Resp BP BP BP Pulse Ox 06/01/19 11:56 98.0 F 92 14 144/67 H 100 06/01/19 09:10 77 06/01/19 07:45 97.4 F L 77 16 150/72 H 177/84 H 173/75 H 96 06/01/19 04:00 97.5 F L 70 16 158/70 H Weight Weight 100 lb 6.4 oz I&O: 05/31/19 06/01/19 06/02/19 06:59 06:59 06:59 Intake Total 1100 Output Total 425 Balance 675 Result Diagrams: 06/01/19 04:29 06/01/19 04:29 EKG Reviewed by me: Yes Hospitalist ROS - Review of Systems ENT: denies: ear pain, ear discharge, nose pain, nose discharge, nose congestion , mouth pain, mouth swelling, throat pain, throat swelling, other Respiratory: denies: cough, dry, shortness of breath, hemoptysis, SOB with excertion, pleuritic pain, sputum, wheezing, other Cardiovascular: denies: chest pain, palpitations, orthopnea, paroxysmal noc. dyspnea, edema, light headedness, other Gastrointestinal: denies: nausea, vomiting, abdominal pain, diarrhea, constipation, melena, hematochezia, other Genitourinary: denies: dysuria, frequency, incontinence, hematuria, retention, other Musculoskeletal: denies: neck pain, shoulder pain, arm pain, back pain, hand pain, leg pain, foot pain, other - Medication Medications: Active Medications Generic Name Dose Route Start Last Admin Trade Name Freq PRN Reason Stop Dose Admin Amlodipine Besylate 5 mg 06/01/19 09:00 06/01/19 09:10 Norvasc PO 5 mg DAILY DOMINIQUE Administration Aspirin 81 mg 05/31/19 09:00 06/01/19 09:10 Ecotrin PO 81 mg DAILY DOMINIQUE Administration Enoxaparin Sodium 30 mg 05/31/19 21:00 05/31/19 21:51 Lovenox SC 30 mg 2100 DOMINIQUE Administration Folic Acid 1 mg 05/31/19 09:00 01/02/20 09:09 Folvite PO 1 mg DAILY DOMINIQUE Administration Ceftriaxone Sodium 1 gm/ 100 mls @ 200 mls/hr 05/31/19 09:00 06/01/19 09:09 Sodium Chloride IVPB 100 mls DAILY DOMINIQUE Administration Melatonin 3 mg 05/31/19 08:00 06/01/19 02:54 Melatonin PO 3 mg HSPRN PRN Administration Insomnia Multivitamins 1 tab 05/31/19 09:00 06/01/19 09:10 Theragran PO 1 tab DAILY DOMINIQUE Administration Sodium Chloride 10 ml 05/30/19 22:47 05/31/19 02:57 Flush - Normal Saline IVF 10 ml PRN PRN Administration Saline Flush - Exam General Appearance: NAD, awake alert Eye: PERRL, anicteric sclera ENT: normocephalic atraumatic, no oropharyngeal lesions Neck: supple, symmetric, no JVD Heart: RRR, no murmur, no gallops Respiratory: CTAB, no wheezes, no rales, no ronchi Gastrointestinal: soft, non-tender, non-distended Extremities: no cyanosis, no clubbing Skin: normal turgor, no lesions Neurological: no focal deficits Musculoskeletal: normal tone, normal strength Psychiatric: normal affect, normal behavior Hosp A/P (1) UTI (urinary tract infection) Status: Acute (2) Dehydration Code(s): E86.0 - DEHYDRATION Status: Acute (3) Syncope Code(s): R55 - SYNCOPE AND COLLAPSE Status: Acute (4) Acute kidney failure Status: Acute (5) Weakness generalized Code(s): R53.1 - WEAKNESS Status: Acute (6) Anxiety and depression Code(s): F41.8 - OTHER SPECIFIED ANXIETY DISORDERS Status: Chronic (7) Arthritis, rheumatoid Code(s): M06.9 - RHEUMATOID ARTHRITIS, UNSPECIFIED Status: Chronic (8) Dyslipidemia Code(s): E78.5 - HYPERLIPIDEMIA, UNSPECIFIED Status: Chronic - Plan old records reviewed/req 05/31/19 continue IVF continue rocephin follow culture and repeat labs tomorrow medication reviewed and continue to provide symptomatic treatment 06/01/19 pt is anxious so her BP is high but we have added amlodipine 4 mg po bid for her high BP that was missed in Discharge medication list, see discharge fannie
[2019-06-01 14:53] VITALS: BP 194/76
== END 2019-06-01 14:22 | disposition home or self-care (01) ==
LOC: ERS 17:31 → INTOOBSV 23:11 → ERHOLD 23:11 → 2NO 05-31 14:49
PROVIDERS: ADMIT Internal Medicine; ATTEND Internal Medicine
DX: E86.0 Dehydration (principal); I12.9 Hypertensive chronic kidney disease with stage 1 through stage 4 chronic kidney disease, or unspecified chronic kidney disease; N18.2 Chronic kidney disease, stage 2 (mild); N17.9 Acute kidney failure, unspecified; N39.0 Urinary tract infection, site not specified; R32 Unspecified urinary incontinence; E78.5 Hyperlipidemia, unspecified; M06.9 Rheumatoid arthritis, unspecified; F41.8 Other specified anxiety disorders; R79.89 Other specified abnormal findings of blood chemistry; Z79.899 Other long term (current) drug therapy; Z88.8 Allergy status to other drugs, medicaments and biological substances
CPT/HCPCS: 71045; 80048 ×2; 80053; 82550; 83735; 83880; 84100; 84484 ×3; 85025 ×2; 87086; 93005; 93306; 96361; 96374; 97116 ×2; 97139 ×2; 97530 ×2; 99285; G0378 ×3; 36415; 81003; 81015; J0696; J1650; J3490

== ENCOUNTER 2019-11-02 09:33 | Inpatient (IN) | payer MEDICARE, OTHER ==
[2019-11-02] MEDS ORDERED: Sodium Bicarb 50 MEQ/50 ML Abboject 8.4% SYRINGE ONE (09:40)
[2019-11-02] MEDS ORDERED: Dextrose 50% Abboject 50 ML SYRINGE ONE ×2 (09:40→19:59)
[2019-11-02] MEDS ORDERED: Calcium Chloride 1 GM/10 ML Abboject SYRINGE ONE (09:40)
[2019-11-02] MEDS ORDERED: EPINEPHrine 1 MG/10 ML Abboject SYRINGE ONE (09:40)
[2019-11-02 10:13] LABS: Hemoglobin 13.1 g/dL (12.0-16.0); Mean Corpuscular Volume 90.6 fL (78.0-98.0); Platelet Count 477 thou/uL (130-400); RBC Distribution Width 13.3 % (11.5-14.5); White Blood Cell (WBC) Count 4.5 thou/uL (4.8-10.8)
[2019-11-02 10:34] LABS: ALT (SGPT) 12 U/L (8-55); AST (SGOT) 32 U/L (5-34); Albumin 3.6 g/dL (3.4-4.8); Alkaline Phosphatase 114 U/L (40-110); Anion Gap 28 mmol/L (10-20); BUN (Urea Nitrogen) 44 mg/dL (9.8-20.1); Bilirubin, Total 0.4 mg/dL (0.2-1.2); Calc. Creatinine Clearance 0 mL/min (70-130); Carbon Dioxide 15 mmol/L (23-31); Chloride 100 mmol/L (98-107); Estimated GFR-MDRD 13; Globulin 3.8 g/dL (2.4-3.5); Glucose 81 mg/dL (83-110); Lipase 838 U/L (8-78); Potassium 4.5 mmol/L (3.5-5.1); Protein, Total 7.4 g/dL (6.0-8.3); Sodium 138 mmol/L (136-145)
[2019-11-02 10:37] LABS: Calcium 12.3 mg/dL (7.8-10.44)
[2019-11-02 10:56] LABS: Band 24 % (5-11); Burr Cells SLIGHT = 2-5 cells (100X) (0-1/hpf); Crenated RBC SLIGHT = 1-5 cells (100X) (None Seen); Eosinophils 1 % (0-10); Lymphocytes 19 % (21-51); MDiff Complete? YES; Metamyelocyte 33 % (0-0); Monocytes 13 % (0-10); Myelocyte 2 % (0-0); Neutrophil 7 % (42-75); Platelet Clumps SLIGHT; Platelet Morphology Comment Appears Increased; Reactive Lymphocytes 1 % (0-10)
[2019-11-02 11:00] LABS: CKMB 8.5 ng/mL (0-6.6)
[2019-11-02] MEDS ORDERED: Ondansetron PF 4 MG/2 ML Vial ONE ×2 (11:05→13:14)
[2019-11-02] MEDS ORDERED: Fentanyl 100 MCG/2 ML VIAL ONE ×3 (11:05→15:28)
[2019-11-02 11:24] LABS: Bilirubin Small (Negative); Blood, Urine Large (Negative); Glucose, Urine (Dipstick) Negative (Negative); Leukocyte Small (Negative); Nitrite Negative (Negative); Protein, Urine (Dipstick) 100 mg/dL (Neg-Trace); Urobilinogen 0.2 mg/dL (Less than 2)
[2019-11-02 11:42] LABS: Clarity HAZY (Clear)
[2019-11-02 11:43] LABS: WBC/HPF Greater Than 50 HPF (0-3)
[2019-11-02 11:44] LABS: Bacteria/HPF 3+ HPF (None Seen)
--- NOTE | 2019-11-02 11:51 | CT ---
CT ABDOMEN AND PELVIS WITHOUT CONTRAST: Date: 11/02/2019 HISTORY: Abdominal pain. FINDINGS: Absence of oral and IV contrast reduces the sensitivity of exam, particularly for evaluation of solid organs and bowel. A tiny right pleural effusion is seen with adjacent atelectatic change. There is a large amount of fr ee air in the abdomen and a moderate amount of free fluid in the abdomen and pelvis. A moderate sized hiatal hernia is present. No calcified gallstones are seen. No calculi seen in the kidneys, ureters, or the urinary bladder. No hydroureteronephrosis noted on either side. Free air is also seen in the pelvis. There are vascular calcifications without evidence of aneurysmal dilatation of the abdominal aorta. There are degenerative changes in the spine. Old fractures of the right pubic bones are presen t. IMPRESSION: Findings are indicative of bowel perforation. Findings discussed over the telephone with ER physician, Dr. Blair Lazo, at 1138 hours. CODE CR.
[2019-11-02] MEDS ORDERED: Senokot S 8.6-50 MG TAB PO PRN (12:13)
[2019-11-02] MEDS ORDERED: Rocuronium Bromide 10 MG/ML (10ML VIAL) ONE (13:14)
[2019-11-02] MEDS ORDERED: EPHEDRINE 25 MG/5 ML SYRINGE ONE (13:14)
[2019-11-02] MEDS ORDERED: PHENYLEPHRINE-NS 100 MCG/ML 10 ML SYRINGE ONE (13:14)
[2019-11-02] MEDS ORDERED: Lidocaine 1% PF 5 ML VIAL ONE (13:14)
[2019-11-02] MEDS ORDERED: Piperacillin/Tazobactam 3.375 GM VIAL ONE (13:55)
--- NOTE | 2019-11-02 14:18 | HP ---
HISTORY OF PRESENT ILLNESS: Brenda Ca is an 84-year-old female, lives at home, ambulatory with a walker independently otherwise, and mentally coherent. Has had one week of abdominal pain, left lower quadrant, lower abdomen. She presents to the emergency room, evaluated, and noted to have a carbon dioxide of 15, Lactate of 10.3, BUN 44, creatinine 3.43, GFR 12. She has a history of chronic kidney disease, although normal renal function on 07/24/2019. The patient had a CAT scan of abdomen and pelvis performed without contrast (acute kidney injury), revealing large amount of free air and fluid, a moderate hiatal hernia. The patient is exquisitely tender on her left lower quadrant and has peritoneal signs elsewhere. The patient and her daughter have had a discussion and they desire surgical intervention despite DNR status, they understand that will be suspended. I definitely did not want long-term tracheostomy, gastrostomy tube, feeding tube, or dialysis, but they do agree to attempt for dialysis, if necessary. She had echocardiogram performed May 31, 2019, noting 60% to 65% ejection fraction, trace mitral and tricuspid regurgitation, and tricuspid aortic valve. She was noted to have diastolic dysfunction. ALLERGIES: THE PATIENT IS LISTED TYLENOL ALLERGIC, BUT SHE DENIES ANY REACTION TO THAT, AND STATES THAT SHE IS NOT ALLERGIC. TOBACCO: None. ALCOHOL: None. MEDICATIONS: At home, 1. Simvastatin. 2. Sertraline. 3. Ferrous sulfate. 4. Cipro. 5. Amlodipine. 6. Aspirin. PAST SURGICAL HISTORY: Has listed a hysterectomy, breast biopsies, upper endoscopies for AVMs, cataract surgery, tonsillectomy. She has a history of pelvic fracture, managed nonoperatively, followed by Dr. Garcia. PAST MEDICAL HISTORY: Chronic urinary incontinence, anxiety, history of AVMs, upper endoscopy, depression, vitamin D deficiency, ambulatory with a walker. She has never had a colonoscopy. PHYSICAL EXAMINATION: VITAL SIGNS: Blood pressure 120/80, heart rate 90, respiratory rate 18. GENERAL: The patient is alert and oriented. GCS 15. LUNGS: Clear to auscultation. No wheezing. CARDIAC: Regular rate and rhythm without murmur or gallop. ABDOMEN: Slightly distended. Diffusely tender. Peritoneal signs, exquisitely tender left lower quadrant, suprapubic, although peritoneal signs throughout. EXTREMITIES: No ankle edema. LABORATORY DATA: As noted above. Sodium 138, potassium 4.5, carbon dioxide 15, BUN 44, creatinine 3.43, GFR 13, lactate 10.3, calcium 12.3, bilirubin 0.4. White count 4, hemoglobin 13, bands 24%. Urinalysis unremarkable. ASSESSMENT AND PLAN: 1. Perforated viscus, suspect diverticulitis. We would recommend laparotomy, indicated procedures, possibility of colon resection, colostomy, risk of infection, bleeding, reoperation, and postoperative ventilation discussed. Suspended DNR, consented. Questions were answered with the patient and daughter present. 2. Acute kidney injury, anuric. Have a consult to Dr. Lopez. 3. Diastolic dysfunction. Job ID: [id number]
[2019-11-02 15:05] LABS: Troponin I 0.032 ng/mL (< 0.028)
[2019-11-02] MEDS ORDERED: Sodium Chloride 0.9% 30 ML ONE (15:13)
[2019-11-02] MEDS ORDERED: Lidocaine 2% PF 5 ML VIAL ONE (15:13)
[2019-11-02] MEDS ORDERED: Bupivacaine PF 0.5% 30 ML VIAL ONE (15:13)
[2019-11-02] MEDS ORDERED: Heparin 10,000 UNITS/1 ML VIAL ONE (15:13)
[2019-11-02] MEDS ORDERED: Sodium Bicarbonate 100 MEQ in Dextrose 5% in Water 1,000 ML IV SCH ×2 (15:15→21:00)
--- NOTE | 2019-11-02 16:09 | CON ---
DATE OF CONSULTATION: REASON FOR CONSULTATION: Elevated creatinine. Metabolic acidosis. HISTORY OF PRESENT ILLNESS: This is an 84-year-old female who was admitted to the hospital today for perforated diverticulitis and surgery is planned. The patient has acidosis and elevated creatinine. The patient has nausea, vomiting, as well as very poor appetite. The patient is extremely thirsty. The patient denies any chest pain at this time. PAST MEDICAL HISTORY: Hysterectomy, breast biopsy, endoscopy, AVM, tonsillectomy, pelvic fractures, chronic urine incontinence, depression, vitamin D deficiency, ambulatory with a walker. SOCIOECONOMIC HISTORY: No alcohol or drug use. FAMILY HISTORY: Negative for ESRD. ALLERGIES: REVIEWED. MEDICATIONS: Home medication list reviewed. Hospital medications reviewed. REVIEW OF SYSTEMS: 15-point review of system was performed and negative except for positives noted above. HEENT: Eyes intact, no diplopia. Ears: No hearing loss or earache. Nose: No discharge or bleeding. CHEST: No cough or phlegm. ABDOMEN: No nausea or vomiting. GENITOURINARY: No hematuria. No Maradiaga catheter. MUSCULOSKELETAL: No low back pain. No joint swelling or pain. NEUROLOGICAL: No syncope. No seizures. SKIN: No complaints of rash or itching. PSYCHIATRIC: No depression. CONSTITUTIONAL: No weight loss or loss of appetite. PHYSICAL EXAMINATION: GENERAL: The patient is awake and alert. VITAL SIGNS: Afebrile, pulse 75, breathing 16, blood pressure 130/90. HEENT: Head normocephalic and atraumatic. Eyes intact, no ulcers. Nose intact , no ulcers. Ears intact, no ulcers. Neck: Supple. No JVD. Chest: Symmetrical and clear. Cardiovascular: Shows S1 and S2, no rub, no murmur. Gastrointestinal: Not performed. Extremities: Show no edema or ulcers. Skin: Shows no rash or petechiae. Musculoskeletal: Shows no joint swelling or stiffness. Genitourinary: Shows no Maradiaga or CVA tenderness. Neurologic: The patient is resting. LABORATORY DATA: Reviewed. ASSESSMENT: 1. Acute kidney injury with chronic kidney disease stage 4. We will plan dialysis. 2. Metabolic acidosis. Start bicarbonate drip. 3. Hypercalcemia. Continue hydration. 4. Medication based on GFR appropriate. We will consider dialysis if the acidosis does not improve. All the above findings were discussed with the patient's family member. All questions were answered. Thank you for allowing me to participate in care of this patient. Job ID: [id number] MTDD
[2019-11-02] MEDS ORDERED: Phenylephrine 10 MG/ML VIAL ONE ×2 (16:35→17:40)
[2019-11-02] MEDS ORDERED: Meropenem 500 MG in Sodium Chloride 0.9% 100 ML IVPB SCH ×2 (17:00→22:00)
[2019-11-02] MEDS ORDERED: Norepinephrine 4 MG/4 ML VIAL ONE ×2 (17:44→17:56)
--- NOTE | 2019-11-02 17:57 | HP ---
CHIEF COMPLAINT: Abdominal pain. HISTORY OF PRESENT ILLNESS: An 84-year-old female without significant past medical history experienced intermittent abdominal pain of 2 weeks duration, who went to see a primary care physician couple of weeks ago, no labs done or antibiotics given. Her antidepressant was switched. Since yesterday, her pain did not get better. Less p.o. intake overall. Family thought she may have some constipation and gas. They did not notice any blood in the urine or stool. Because of the worsening abdominal pain, brought in here and she noted to have a bowel perforation and acute kidney injury with chronic kidney disease stage 4, severe metabolic acidosis, and lactic acid elevation. Dr. Mckeon, Surgery, will be taking her shortly to the possible laparotomy. Postoperatively, the patient will be admitted in the ICU. REVIEW OF SYSTEMS: Not obtainable. For the most part, the patient was healthy. She was not on any prescribed medications except taking Advil for her spinal DJD. PAST MEDICAL HISTORY: None other than severe arthritis. MEDICATIONS: Advil. SOCIAL HISTORY: She lives with one of the daughters. FAMILY HISTORY: Noncontributory. PHYSICAL EXAMINATION: VITAL SIGNS: Blood pressure 103/59, pulse 73, temperature is 97.1. GENERAL: She is in moderate distress with mild pain. I was not able to get much information. She is quite elderly, fragile, toxic looking. CARDIOVASCULAR: She is tachycardic with regular rhythm. LUNGS: With anterior auscultation, did not appreciate any adventitious lung sounds. EXTREMITIES: No pitting edema. ABDOMEN: Hypoactive bowel sounds. It is soft. There is mildly tenderness mostly on the lower quadrants. LABORATORY DATA: BUN 44, creatinine 3.43, calcium 12.3, lactic acid 10.3, CK-MB 8.5, troponin 0.78. Lipase 838. CBC with WBC 4.5, platelets 477, hemoglobin 17. UA shows pyuria as well as bacteria. IMAGING DATA: CT abdomen showed tiny right pleural effusion, large amount of free air in the abdomen, moderate in the abdomen and pelvis; hiatal hernia. IMPRESSION: 1. This is an 84-year-old female without significant past medical history, presenting with bowel perforation. It is unclear at this point, the exact location of the bowel perforation. 2. Severe metabolic acidosis secondary to bowel perforation. 3. Sepsis secondary to bowel perforation with multiorgan dysfunction including acute kidney injury and pancreatitis. 4. [id number]-cd-wljomtr kidney disease stage 4. 5. Pancreatitis. 6. Abnormal troponin secondary to mismatch demand ischemia. 7. Urinary tract infection. 8. Hypercalcemia. PLAN: 1. The patient will be going to the OR shortly. We will give her empiric meropenem, renally dosed. 2. Dr. Lopez, feather boner, has been consulted. 3. Aggressive hydration. 4. Given her advanced age and significant acute comorbidities, I will also consult Palliative to be on board. 5. Rest of the management based on clinical course. 6. Currently, she is full code. Job ID: [id number] MTDD
[2019-11-02] MEDS ORDERED: Sodium Bicarbonate 2.5 MEQ/5 ML VIAL ONE (18:03)
[2019-11-02] MEDS ORDERED: Sodium Bicarb 50 MEQ/50 ML VIAL ONE ×2 (18:04→18:05)
[2019-11-02] MEDS ORDERED: VASOSTRICT IV SCH (19:15)
[2019-11-02] MEDS ORDERED: SODIUM CHLORIDE 0.9% IV SCH (19:15)
[2019-11-02 19:25] LABS: Actual Bicarbonate (HCO3a) 15.8 mEq/L (22-28); Base Excess (BEa) -10.3 mEq/L (-2.0 to +3.0); CO2 Tension 35.5 mmHg (35.0-45.0); Calcium, Ionized 1.22 mmol/L (1.12-1.30); Carboxyhemoglobin (COHb) 0.3 gm% (0.0-3.0); O2 Tension (PaO2), arterial 250.1 mmHg (> 60.0); Potassium - ABG Lab 4.48 mmol/L (3.70-5.30); pH, Arterial 7.27 (7.35-7.45)
[2019-11-02 19:26] LABS: Puncture Site ALINE
[2019-11-02 19:27] LABS: ALV-art Gradient 418.525 (0-20)
[2019-11-02] MEDS ORDERED: Sodium Chloride 0.9% 1,000 ML IV SCH (19:30)
[2019-11-02] MEDS ORDERED: Ventilator Sedation Protocol 1 EACH FS SCH (19:30)
[2019-11-02] MEDS ORDERED: Propofol BOLUS 1,000 MG/100 ML VIAL IV PRN (19:34)
[2019-11-02] MEDS ORDERED: DISCONTINUE PREVIOUS NARCOTIC PAIN MEDICATIONS AND BENZODIAZEPINES FS SCH (19:34)
[2019-11-02] MEDS ORDERED: Morphine 2 MG/ML SYRINGE SLOW IVP PRN (19:34)
[2019-11-02] MEDS ORDERED: Fentanyl BOLUS 250 ML IVPB PRN (19:34)
[2019-11-02] MEDS ORDERED: Propofol 1,000 MG/100 ML VIAL IV PRN (19:34)
[2019-11-02] MEDS ORDERED: fentaNYL Citrate/PF 2,000 MCG in Sodium Chloride 0.9% 60 ML IV SCH (19:34)
[2019-11-02] MEDS ORDERED: Lorazepam 2 MG/ML VIAL SLOW IVP PRN (19:34)
[2019-11-02 19:37] LABS: Hemoglobin 9.2 g/dL (12.0-16.0); Mean Corpuscular HGB CONC 32.2 g/dL (32.0-36.0); Mean Corpuscular Hemoglobin 29.1 pg (27.0-31.0); Mean Corpuscular Volume 90.4 fL (78.0-98.0); Mean Platelet Volume 6.8 fL (7.4-10.4); Platelet Count 303 thou/uL (130-400); RBC Distribution Width 13.1 % (11.5-14.5); Red Blood Cell (RBC) Count 3.16 mill/uL (4.20-5.40); White Blood Cell (WBC) Count 1.7 thou/uL (4.8-10.8)
--- NOTE | 2019-11-02 19:44 | RAD ---
CHEST ONE VIEW: 11/02/19 HISTORY: Central line placement. COMPARISON: Radiograph 05/30/19. FINDINGS: Left IJ central venous catheter in place with tip at the mid SVC. No left sided pneumothorax. Endotra cheal tube tip just below the clavicles in good position. Enteric tube tip below diaphragm but out of field of view. There is small effusions. Mild patchy opacities right mid lung and lower lobe. Free air below the diaphragm. IMPRESSION: 1. Satisfactory position of the left IJ central venous catheter and endotracheal tube tip. 2. Enteric tube tip below the diaphragm but out of the field of view. 3. Mild patchy opacities along the hilum bilaterally and small effusions. 4. Pneumoperitoneum. POS: HOME
[2019-11-02 19:52] LABS: Anion Gap 20 mmol/L (10-20); BUN (Urea Nitrogen) 41 mg/dL (9.8-20.1); Calc. Creatinine Clearance 0 mL/min (70-130); Calcium 8.4 mg/dL (7.8-10.44); Carbon Dioxide 16 mmol/L (23-31); Chloride 112 mmol/L (98-107); Estimated GFR-MDRD 17; Glucose 57 mg/dL (83-110); Lactic Acid 8.4 mmol/L (0.5-2.2); Phosphorus 6.6 mg/dL (2.3-4.7); Potassium 4.8 mmol/L (3.5-5.1); Sodium 143 mmol/L (136-145)
[2019-11-02 20:04] LABS: Band 20 % (5-11); Lymphocytes 30 % (21-51); MDiff Complete? YES; Metamyelocyte 13 % (0-0); Monocytes 11 % (0-10); Myelocyte 9 % (0-0); Neutrophil 16 % (42-75)
[2019-11-02] MEDS ORDERED: Dextrose 50% Abboject 50 ML SYRINGE IVP PRN (20:55)
[2019-11-02] MEDS ORDERED: Dextrose 5% in Water 1,000 ML IV PRN (20:55)
[2019-11-02 21:49] LABS: Hemoglobin 9.7 g/dL (12.0-16.0)
[2019-11-02] MEDS: Pantoprazole 40 MG VIAL IVP SCH (22:24)
[2019-11-02] MEDS: Sodium Chloride 0.9% 1,000 ML IV SCH (22:24)
[2019-11-02] MEDS: Norepinephrine 8 MG/0.9% NS 250 ML IVPB SCH (22:29)
[2019-11-03] MEDS: Hydrocortisone Sod Succ/PF 100 mg/2 ml Vial IVP SCH ×2 (00:11→05:15)
[2019-11-03] MEDS: Albumin 25% 25 GM/100 ML BOT IVPB SCH ×2 (00:13→05:15)
--- NOTE | 2019-11-03 01:24 | CON ---
DATE OF CONSULTATION: 11/02/2019 REASON FOR CONSULTATION: Critical care management. This encompasses 70 minutes critical care time including except about time spent talking with the family about the patient's condition. HISTORY OF PRESENT ILLNESS: This is an 84-year-old female, who presented to the hospital with a 1-week history of left lower quadrant abdominal pain. She was taken to the OR for exploratory laparotomy. Prior to going the OR, she was extremely acidotic and was hypotensive. She is currently on multiple vasopressors. Intraoperative findings included ischemic large bowel and perforated duodenal ulcer. At the time of dictation, operative report is not available for review, so my exact wording on that may not be correct. The patient required a colectomy and repair of the ulcer. She was left open for further exploration as needed. Of note, prior to surgery, this patient was DNR, but reversed her code status for the exploratory laparotomy. PAST MEDICAL HISTORY: Urinary incontinence, arterial venous malformations of the colon, depression, and vitamin D deficiency. PAST SURGICAL HISTORY: Hysterectomy, breast biopsies, upper endoscopies for arteriovenous malformations, cataract surgery, tonsillectomy, and pelvic fracture. MEDICATIONS: 1. Simvastatin. 2. Sertraline. 3. Iron sulfate. 4. Cipro. 5. Amlodipine. 6. Aspirin. SOCIAL HISTORY: Nonsmoker. Does not consume alcohol. ALLERGIES: NONE. ACETAMINOPHEN WAS LISTED, BUT APPARENTLY THE PATIENT REFUTED THAT ALLERGY. REVIEW OF SYSTEMS: Cannot be obtained. The patient is currently on mechanical ventilation. PHYSICAL EXAMINATION: VITAL SIGNS: Heart rate 101, blood pressure 123/76, respiratory rate 24, and O2 saturation 98% on 80% oxygen. GENERAL: This patient is currently comatose in the post anesthetic state after surgery. HEENT: Pupils are 3 mm and reactive. Sclerae anicteric. Oropharynx dry. NECK: No adenopathy or JVD. LUNGS: Clear anteriorly. CARDIOVASCULAR: S1 and S2. Slightly tachycardic. ABDOMEN: She has a wound VAC at midline. EXTREMITIES: No clubbing, cyanosis, or edema. She has Maradiaga catheter in place with dark urine with scant amount. LABORATORY DATA: White blood cell count 1.7, hematocrit 28.5, and platelet count 303. A pH of 7.27, pCO2 of 35, and pO2 of 250 on SIMV rate 14, tidal volume 450, PEEP 5, pressure support 10, and FiO2 of 100%. Sodium 143, potassium 4.8, chloride 112, CO2 of 16, BUN 41, creatinine 2.6, glucose 57, and phosphorus 6.6. Troponin 0.032. Chest x-ray shows ET tube in correct position. She has a left IJ line in correct position. She has some scattered infiltrative changes in the right mid lung field. ASSESSMENT: 1. Ischemic/ bowel requiring colectomy. 2. Perforated duodenal ulcer requiring repair. 3. Intraabdominal sepsis. 4. Acute renal failure. PLAN: 1. The patient be left intubated on mechanical ventilation. I have adjusted the respiratory rate on mechanical ventilation. 2. Sedation as needed. 3. Hypoglycemia protocol. 4. She has also been started on D5 bicarbonate drip by Nephrology. 5. In my opinion, she is not a candidate for dialysis at the current time due to hemodynamic instability and need for multiple vasopressors. 6. Probably needs IV corticosteroids as she could be adrenally suppressed, especially if her adrenal glands were affected by the hypotension. 7. I spoke with the family at bedside. They understand the patient's critical condition. Job ID: [id number]
[2019-11-03 04:47] LABS: INR-International Normal Ratio 1.9; Prothrombin Time 22.1 sec (12.0-14.7)
[2019-11-03 05:03] LABS: ALT (SGPT) 154 U/L (8-55); AST (SGOT) 422 U/L (5-34); Albumin 2.7 g/dL (3.4-4.8); Alkaline Phosphatase 79 U/L (40-110); Bilirubin, Direct 0.5 mg/dL (0.1-0.3); Bilirubin, Total 0.6 mg/dL (0.2-1.2); Magnesium 2.1 mg/dL (1.6-2.6); Phosphorus 6.6 mg/dL (2.3-4.7); Protein, Total 4.6 g/dL (6.0-8.3)
[2019-11-03] MEDS: Sodium Chloride 0.9% 1,000 ML IV SCH (05:16)
[2019-11-03] MEDS: Norepinephrine 8 MG/0.9% NS 250 ML IVPB SCH (07:26)
[2019-11-03 07:58] LABS: Band 36 % (5-11); Burr Cells SLIGHT = 2-5 cells (100X) (0-1/hpf); Crenated RBC SLIGHT = 1-5 cells (100X) (None Seen); Hemoglobin 9.3 g/dL (12.0-16.0); Lymphocytes 25 % (21-51); MDiff Complete? YES; Mean Corpuscular HGB CONC 32.4 g/dL (32.0-36.0); Mean Corpuscular Hemoglobin 29.7 pg (27.0-31.0); Mean Corpuscular Volume 91.7 fL (78.0-98.0); Mean Platelet Volume 7.6 fL (7.4-10.4); Metamyelocyte 14 % (0-0); Monocytes 13 % (0-10); Myelocyte 1 % (0-0); Neutrophil 11 % (42-75); Platelet Count 238 thou/uL (130-400); Platelet Morphology Comment Appears Adequate; Poikilocytosis MODERATE=16-30 cells (100X) (0-5/hpf); RBC Distribution Width 13.3 % (11.5-14.5); Red Blood Cell (RBC) Count 3.14 mill/uL (4.20-5.40); White Blood Cell (WBC) Count 2.7 thou/uL (4.8-10.8)
--- NOTE | 2019-11-03 08:10 | PRG ---
DATE OF SERVICE: 11/03/2019 TIME SPENT: 35 minutes of critical care time. SUBJECTIVE: Ms. Ca's conditions continues to spiral downhill. She had a pulseless electrical arrest this morning. She responded to epinephrine. It should be noted, she is a chemical code only at this point. OBJECTIVE: VITAL SIGNS: Her temperature 97.9, pulse 58, blood pressure 60s/40s, 24-hour intake 2440, output no urine. HEENT: Plethoric, poorly reactive pupils. Oropharynx with ET tube in place. NECK: No JVD. LUNGS: Coarse breath sounds. CARDIOVASCULAR: S1, S2. Bradycardic. ABDOMEN: Wound VAC in place, quiet. EXTREMITIES: Edematous. LABORATORY DATA: Chemistry has not resulted fully. Her LFTs are elevated. Her albumin is 2.7. CBC and comp met are otherwise pending. INR is 1.9. ABG is pending. Chest x-ray shows a right-sided infiltrate. ASSESSMENT: 1. bowel. 2. Perforated ulcer. 3. Severe metabolic acidosis. 4. Status post pulseless electrical arrest. 5. Acute renal failure. PLAN: This illness is not survival and the patient will likely succumb. I have put an order for epi drip basically to help extend things until family fully arrives. We will check blood gas and labs and adjust accordingly, but I do not think any measure of intervention will help this patient. Job ID: [id number]
[2019-11-03] MEDS ORDERED: Sodium Bicarb 50 MEQ/50 ML Abboject 8.4% SYRINGE IVP SCH (08:15)
--- NOTE | 2019-11-03 08:19 | OP ---
DATE OF PROCEDURE: 11/02/2019 PREOPERATIVE DIAGNOSES: Sepsis, perforated viscus, and acute renal failure. POSTOPERATIVE DIAGNOSES: Sepsis; perforated duodenal ulcer with bowel peritonitis; gangrenous right colon, transverse colon, and terminal ileum; disruption of the second portion of the duodenum walled off requiring reconstruction; and acute renal failure. FINDINGS: Abdominal cavity full of bilious fluid initially thought to be stool; gangrenous right colon, cecum, ascending colon, terminal ileum, and transverse colon; ischemic small bowel and distal colon on three pressors and septic ABThera applied for planned second-look. ANESTHESIA: General. PROCEDURES PERFORMED: Left internal jugular central line, ultrasound facilitated; right femoral vein Trialysis catheter; exploratory laparotomy; abdominal washout; mobilization of splenic flexure, right colon, transverse colon, and left colon; subtotal abdominal colectomy with bowel stapled off and not anastomosed; Rod maneuver; mobilization of the duodenum; reconstruction of the second portion of the duodenum with two-layer closure 2-0 Vicryl and 3-0 Prolene; plan second look with ABThera. DISPOSITION: Critical condition with ventilator postop in ICU on three pressors. DESCRIPTION OF PROCEDURE: The patient was taken the operating room. Under general anesthesia, anesthesia placed an arterial line. I placed left IJ triple-lumen catheter using Seldinger technique. Ultrasound facilitated triple-lumen catheter was placed and held in place with 3-0 silk suture. Sterile dressings. Each port aspirated blood and flushed with saline solution to help connect IV fluids. Abdomen and groins were prepared with ChloraPrep and draped in routine fashion. Maradiaga catheter had been placed. Using Seldinger technique, right femoral vein Trialysis catheter was placed, placed in small or medium size dilators over the J-wire and placed Trialysis catheter, secured with 3-0 nylon suture, , aspirated each saline, flushed with heparinized saline 1000 units/mL. A midline incision was made centered about the umbilicus carried down to skin and subcutaneous tissue. On entering the abdominal cavity, there was a loud pop of pneumoperitoneum, which was evacuated. Abdominal cavity was full of what was thought initially to be of loose feculent material as it was very foul smelling. Right colon was gangrenous and ischemic in appearance as was the terminal ileum, transverse colon, and left colon. I initially focused on the colon thinking this was a leakage of small bowel from ischemic bowel. As I carefully evaluated the colon from the peritoneal reflection of the lower sigmoid colon to the cecum and mobilized the cecum from the pelvis as the patient had adhesions from prior hysterectomy, the colon was noted to be intact, although ischemic and gangrenous in areas. I then focused to the right upper quadrant, where there was noted to be marked thickening of the second portion of the duodenum and obvious perforated duodenal ulcer. Abdominal cavity was evacuated of foul-smelling bilious material present in all quadrants, pelvis, and subdiaphragmatic spaces. I packed off the perforated ulcer. Bookwalter retractor was placed. Incision appropriately extended to care for the problem. Nasogastric tube was placed by anesthesia. This was somewhat difficult due to the patient's hiatal hernia, but it was advanced in the stomach and properly positioned. I then evaluated the second portion of the duodenum and there was a walled off perforation. Initially, I appreciated this and saw the bilious leakage and air, but what initially was appreciated as a 1 cm perforation was found to be opening in the walled off chronic process and the duodenum was disrupted 2/3rds the circumference. As I peeled away the inflammatory reactive tissue and adherent inflamed scarred tissue, I mobilized the proximal duodenum as able and then mobilized the distal duodenum at the junction of second and third portions mobilizing this for approximation. I identified the vena cava through a Rod maneuver. The medial wall was intact and I saw bilious material spilling from the distal end. Reconstruction was difficult as I used interrupted and continuous locking sutures of 2-0 Vicryl to approximate the duodenum from the anterolateral and posterior aceves. I then reinforced the closure in Lembert sutures of 3-0 Prolene. The area was irrigated. Abdominal cavity was thoroughly irrigated. Completion colectomy undertaken as the colon was ischemic and the patient was septic and it was felt that this should be resected. The terminal ileum was divided with HOLA stapler. Mesentery divided with the ligature, mobilizing the right colon, freeing the right colon and transverse colon, mobilizing the splenic flexure and resecting the splenic flexure by dividing mesentery with the LigaSure, resecting the descending colon and the sigmoid colon, stapling the distal sigmoid colon with the HOLA stapler. Abdominal cavity was thoroughly irrigated with multiple liters of saline solution evacuated. ABThera applied. The patient transferred to the intensive care unit in critical condition. Job ID: [id number]
[2019-11-03 08:24] LABS: Actual Bicarbonate (HCO3a) 6.8 mEq/L (22-28); Base Excess (BEa) -21.2 mEq/L (-2.0 to +3.0); Calcium, Ionized 1.34 mmol/L (1.12-1.30); Carboxyhemoglobin (COHb) 0.3 gm% (0.0-3.0); Hemoglobin (Hb) 8.3 g/dL (12.0-16.0); O2 Tension (PaO2), arterial 146.9 mmHg (> 60.0); Potassium - ABG Lab 7.31 mmol/L (3.70-5.30)
[2019-11-03 08:26] LABS: CO2 Tension 22.4 mmHg (35.0-45.0)
[2019-11-03 08:27] LABS: Puncture Site ALINE
[2019-11-03 08:28] VITALS: BP 115/69; TEMP 97
[2019-11-03] MEDS: Pantoprazole 40 MG VIAL IVP SCH (08:32)
--- NOTE | 2019-11-03 08:50 | PRG ---
DATE OF SERVICE: 11/03/2019 SUBJECTIVE: An 84-year-old female, being seen for acute kidney injury. The patient is resting. OBJECTIVE: General: The patient is resting. Vital Signs: Afebrile, pulse 86, breathing 16, and blood pressure 133/72. HEENT: Head normocephalic and atraumatic. Eyes intact, no ulcers. Nose intact, no ulcers. Ears intact, no ulcers. Neck: Supple. No JVD. Chest: Symmetrical and clear. Cardiovascular: Shows S1 and S2, no rub, no murmur. Gastrointestinal: Not performed. Extremities: Show no edema or ulcers. Skin: Shows no rash or petechiae. Musculoskeletal: Shows no joint swelling or stiffness. Genitourinary: Shows no Maradiaga or CVA tenderness. Neurologic: The patient is resting. LABORATORY DATA: Hemoglobin 9.3. Creatinine is pending. ASSESSMENT AND PLAN: 1. Acute kidney injury with chronic kidney disease, multifactorial. We will evaluate the need for dialysis . 2. Anemia, stable. 3. Medication based on GFR appropriate. We will evaluate the need for dialysis today. Job ID: [id number]
[2019-11-03 08:51] LABS: Hemoglobin 8.4 g/dL (12.0-16.0)
[2019-11-03 09:12] LABS: Anion Gap 32 mmol/L (10-20); BUN (Urea Nitrogen) 42 mg/dL (9.8-20.1); Calc. Creatinine Clearance 10 mL/min (70-130); Calcium 8.7 mg/dL (7.8-10.44); Carbon Dioxide 11 mmol/L (23-31); Chloride 111 mmol/L (98-107); Estimated GFR-MDRD 15; Glucose 92 mg/dL (83-110); Potassium 6.5 mmol/L (3.5-5.1); Sodium 147 mmol/L (136-145)
--- NOTE | 2019-11-03 09:53 | RAD ---
PORTABLE SUPINE CHEST: History CCU followup on ventilator. COMPARISON: 11/02/2019. FINDINGS: Confluent infiltrate in the right lower lung and infrahilar region appears more prominent today. Lef t lower lobe atelectasis or infiltrate is also again noted and appears unchanged. ET tube, NG tube, and central lines are again noted. IMPRESSION: Bilateral infiltrates. POS: AGW
--- NOTE | 2019-11-03 12:39 | DIS ---
DATE OF ADMISSION: 11/02/2019 DATE OF DISCHARGE: 11/03/2019 DISCHARGE DIAGNOSES: 1. Bowel perforation. 2. Sepsis secondary to bowel perforation with severe metabolic acidosis. 3. Multiorgan dysfunctions including acute kidney injury and pancreatitis secondary to sepsis associated with bowel perforation. 4. Acute on chronic kidney disease, stage 4. 5. Pancreatitis. 6. Abnormal troponin secondary to demand ischemia. 7. Urinary tract infection. 8. Hypercalcemia. HOSPITAL COURSE: An 84-year-old female without significant past medical history , experienced intermittent abdominal pain of 2 weeks' duration. Initial imaging study showed she had a bowel perforation. She undergone bowel surgery by Dr. Mckeon. Postprocedure on 5th morning, she did not do well, she remained intubated after the surgery. Around 6:30, she went into asystole. She was transiently on epi drip that was stopped. Around 9:12 a.m., on , she demised. PRIMARY CAUSE OF : Perforated bowel and multiorgan system failure associated with sepsis secondary to perforated bowel. SECONDARY CAUSE OF : 1. Acute kidney injury. 2. Pancreatitis. Job ID: [id number] MTDD
--- NOTE | 2019-11-04 14:51 | EKG ---
Test Reason : ER Blood Pressure : / mmHG Vent. Rate : 088 BPM Atrial Rate : 046 BPM P-R Int : 000 ms QRS Dur : 072 ms QT Int : 376 ms P-R-T Axes : 000 -23 -45 degrees QTc Int : 454 ms Atrial fibrillation Nonspecific ST and T wave abnormality , probably digitalis effect Abnormal ECG Confirmed by ENRICO FLORES ([id number]), assistant editor YVETTE GARNETT ([id number]) on 11/04/2019 2:51:04 PM Referred By: Confirmed By:ENRICO FLORES
== END 2019-11-03 09:12 | disposition expired | DRG 853 ==
LOC: ERS 09:33 → CCU 12:35 → SDC 12:35 → CCU 12:36
PROVIDERS: ADMIT Specialist; ATTEND Specialist
PROC: 0DTG0ZZ Resection of Left Large Intestine, Open Approach (ICD-10-PCS; principal; 2019-11-02)
PROC: 02HV33Z Insertion of Infusion Device into Superior Vena Cava, Percutaneous Approach (ICD-10-PCS; 2019-11-02)
PROC: 3E033XZ Introduction of Vasopressor into Peripheral Vein, Percutaneous Approach (ICD-10-PCS; 2019-11-02)
PROC: 30233N1 Transfusion of Nonautologous Red Blood Cells into Peripheral Vein, Percutaneous Approach (ICD-10-PCS; 2019-11-03)
DX: A41.9 Sepsis, unspecified organism (principal); K85.90 Acute pancreatitis without necrosis or infection, unspecified; K26.5 Chronic or unspecified duodenal ulcer with perforation; K57.80 Diverticulitis of intestine, part unspecified, with perforation and abscess without bleeding; N18.4 Chronic kidney disease, stage 4 (severe); N17.9 Acute kidney failure, unspecified; E87.2 Acidosis; N39.0 Urinary tract infection, site not specified; K55.1 Chronic vascular disorders of intestine; R65.20 Severe sepsis without septic shock; E83.52 Hypercalcemia; F32.9 Major depressive disorder, single episode, unspecified; K44.9 Diaphragmatic hernia without obstruction or gangrene; Z66 Do not resuscitate; I08.1 Rheumatic disorders of both mitral and tricuspid valves; F41.9 Anxiety disorder, unspecified; E55.9 Vitamin D deficiency, unspecified; I46.9 Cardiac arrest, cause unspecified; Z90.710 Acquired absence of both cervix and uterus; Z88.5 Allergy status to narcotic agent; Z79.82 Long term (current) use of aspirin; Z79.899 Other long term (current) drug therapy
CPT/HCPCS: 36415; 36416; 36430; 51701; 71045; 74176; 80048; 80053; 80076; 81003; 81015; 82553; 82805; 83605; 83690; 83735; 84100; 84484; 85025; 85060; 85610; 85730; 86850; 86900; 86901; 88307; 93005; 93010; 94002; 94003; 94760; 96361; 96365; 96375; 96376; C1752; C9113; J0171; J1644; J1720; J2001; J2185; J2370; J2405; J2543; J3010; J3490; J7070; P9016; P9047; S0020